=== PATIENT | male | born 1945 | race Caucasian/White ===

== ENCOUNTER → 2020-06-26 09:34 | Outpatient (REF) | payer MEDICARE, OTHER, SELFPAY ==
--- NOTE | 2020-06-26 10:00 | CA_ITS ---
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 Normal LV systolic function 2. At least moderately dilated left atrium 3. Mild mitral regurgitation 4. Normal RV systolic pressure 5. No pericardial effusion Findings Left Ventricle Normal left ventricular size, thickness, and systolic function. The visually estimated ejection fraction is between 55-60%. Diastolic function is indeterminate on the basis of available data. Right Ventricle Mildly increased right ventricular cavity size. There is low normal right ventricular systolic function. Atria The left atrium is moderately dilated. Interatrial shunt cannot be excluded. The right atrium is mildly dilated. Aortic Valve The aortic valve was not well visualized. There is no aortic valve stenosis. There is no aortic valve regurgitation. Mitral Valve There is mild anterior and posterior mitral leaflet thickening. There is mild mitral valve regurgitation. There is no mitral valve stenosis. Pulmonic Valve The pulmonic valve was not well visualized. Tricuspid Valve Likely normal tricuspid valve structure and function. There is trace tricuspid valve regurgitation. The right ventricular systolic pressure is normal. The right ventricular systolic pressure is 26 mmHg. Normal right atrial pressure. There is no evidence of pulmonary hypertension. Great Vessels All visible segments of the aorta are normal in size. The pulmonary artery was not well visualized. Venous The inferior vena cava is normal in size and collapses greater than 50% with inspiration. Pericardium/Pleural There is no evidence of pericardial effusion. Prior Study Comparison No significant change compared to prior study dated: 07/20/2019. Measurements 2D Linear Measurements IVSd: 1.12 0.6-0.9/0.6-1.0 cm LVIDd: 5.07 3.9-5.3/4.2-5.9 cm LVIDd Index: 2.57 2.4-3.2/2.2-3.1 cm/m2 LVIDs: 3.72 2.0-3.6 cm LVPWd: 1.11 0.7-1.1 cm Ao Root: 3.80 2.1-3.5 cm LA Diam: 4.30 2.7-3.8/3.0-4.0 cm LAIDs Index: 2.18 1.5-2.3 cm/m2 LV Mass: 269.04 67-162/88-224 g LV Mass Index: 136.57 43-95/49-115 g/m2 LVOT Diam: 2.00 3.0+(-)1.3 cm 2D Systolic Function EF 4C: 60.30 >55% EF 2C: 47.90 >55% EF BiP: 55.90 >55% Mitral Valve MV Pk E: 0.96 MV Decel Time: 150.00 E'Lateral: 7.67 E'Medial: 7.54 E/E' Med: 12.70 E/E' Lat: 12.50 PHT: 44.00 MVA PHT: 5.00 Decel [place]: 7.11 Aortic Valve AoV Pk Geoffrey: 0.75 AoV Pk Grad: 2.00 LVOT LVOT Pk Geoffrey: 0.63 LVOT Mn Geoffrey: 0.41 LVOT VTI: 0.13 LVOT Pk Grad: 2.00 LVOT Mn Grad: 1.00 LVOT Diam: 2.00 LVOT Area: 3.14 Diastolic Function MV Pk E: 0.96 E'Medial: 7.54 E/E' Med: 12.70 E' Laterial: 7.67 E/E' Lat: 12.50 Tricuspid Valve TR Pk Geoffrey: 2.38 TR Pk Grad: 23.00 RA Press: 3.00 RVSP: 26.00 Great Vessels Aorta Ao Root-2D: 3.80 2.0-3.7 cm Ao Asc: 3.70 2.1-3.4 cm Updated in Other Vendor System with Status of Final Koffi Alvarez MD electronically signed on 06/27/2020 10:26:40 AM with status of Final
--- NOTE | 2020-06-26 11:00 | ECG_ITS ---
Hook-up date: 2020-06-26 11:08:00 Duration: 25:29:00 Test Indications: Persistent Atrial Fibrillation Medications: [id number] QRS complexes 27 Ventricular ectopics which represent <1 % of total QRS comp. * Supraventricular ectopics which represent % of total QRS comp. * Paced QRS complexs which represent % of total QRS comp. VENTRICULAR ECTOPY 19 Isolated 0 Bigeminal Cycles 0 Couplets 0 Runs 0 Beats in Runs 0 Beats LONGEST at 0 BPM at :: -- 0 Beats FASTEST at 0 BPM at :: -- SUPRAVENTRICULAR ECTOPY * Isolated * Couplets * Runs * Beats in Runs * Beats LONGEST at * BPM at :: -- * Beats FASTEST at * BPM at :: -- HEART RATES 54 MIN at 10:27:26 2020-06-27 90 AVG 146 MAX at 22:04:59 2020-06-26 LONGEST RR 1.8800 secs at 11:21:51 2020-06-26 S-T LEVELS Channel 1 - 128 mm at 11:08:00 2020-06-26 - 128 mm at 11:08:00 2020-06-26 Channel 2 - 128 mm at 11:08:00 2020-06-26 - 128 mm at 11:08:00 2020-06-26 Channel 3 - 128 mm at 03:02:71 -- - 128 mm at 03:02:71 Basic rhythm Atrial fibrillation No long pause or profound bradycardia Adequate rate control with average HR of 90 bpm Rare Premature ventricular complexes Patient did not report any symptoms in the diary Referred By: Ti Dickerson Overread By: SONY STAFFORD MD
== END ==
LOC: HO.CARD 09:34
PROVIDERS: Visit Provider Internal Medicine
DX: I48.19 Other persistent atrial fibrillation (principal)
CPT/HCPCS: 93225; 93226; 93306

== ENCOUNTER → 2020-07-30 10:29 | Outpatient (BNVA) | payer MEDICARE, OTHER, SELFPAY | PROVIDERS: PCP Internal Medicine Geriatric Medicine; Visit Provider Internal Medicine | DX: I48.19 Other persistent atrial fibrillation (principal); I42.8 Other cardiomyopathies; I10 Essential (primary) hypertension; J44.9 Chronic obstructive pulmonary disease, unspecified | CPT/HCPCS: 93005; 99212 ==

== ENCOUNTER 2020-10-26 11:39 | Outpatient (REF) | payer MEDICARE, OTHER, SELFPAY ==
--- NOTE | ~2020-10-26 | CT_ITS ---
EXAMINATION: CT CHEST SCREENING CLINICAL INFORMATION: Nicotine dependence COMPARISON: CT chest 09/21/2019 TECHNIQUE: Multidetector volumetric CT imaging of the chest is performed without contrast using low dose technique. Additional 2D coronal and sagittal reformatted images and axial 3D maximum intensity projection (MIP) images are generated on the CT workstation. This CT examination was performed using dose optimization techniques as appropriate, variously including the following: *Automated exposure control *Adjustment of mA and/or kV according to patient size (this includes techniques or standardized protocols for targeted exams where dose is matched to indication/reason for exam; i.e. extremities or head) *Use of iterative reconstruction technique DLP: 76 mGy-cm FINDINGS: LUNGS: The lungs are hyperinflated but clear of acute pneumonic consolidation. There is a punctate 1 mm calcified nodule right upper lobe, axial image 135/6. No additional calcified or noncalcified nodules seen. Minimal atelectatic changes seen in both lung bases. MEDIASTINUM: The thyroid lobes are symmetrical and normal. The central trachea and the bronchi widely patent. The heart size and the great vessels are normal caliber. Coronary artery calcification is present. There is no pericardial effusion seen. PLEURA: There is no pleural effusion. No pleural mass or thickening. AXILLA: No lymphadenopathy. UPPER ABDOMEN: Visualized liver, spleen, gallbladder and bilateral adrenal glands are unremarkable. OSSEOUS STRUCTURES: There is moderate ventral spondylosis and calcification of anterior longitudinal ligament. No lytic process. CT/CT lung screening IMPRESSION: 1 mm calcified nodule/granuloma right upper lobe is stable. No additional nodules seen. Coronary artery calcifications. ASSESSMENT: Lung-RADS category 2: Benign RECOMMENDATION: Low dose annual CT chest.
== END 2020-10-26 11:40 | disposition home or self-care (01) ==
LOC: HO.CT 11:39
PROVIDERS: Visit Provider Physician Assistant Medical
DX: Z12.2 Encounter for screening for malignant neoplasm of respiratory organs (principal); F17.210 Nicotine dependence, cigarettes, uncomplicated
CPT/HCPCS: 71271

== ENCOUNTER 2020-12-28 17:01 | Outpatient (REF) | payer MEDICARE, OTHER, SELFPAY ==
--- NOTE | ~2020-12-28 | US_ITS ---
EXAMINATION: US VENOUS ULTRASOUND WITH DOPPLER LOWER EXTREMITY, RIGHT CLINICAL INFORMATION: Swelling COMPARISON: None TECHNIQUE: Ultrasound of the deep veins is performed from the hip to the calf with compression sonography and color and pulse Doppler assessment. Spectral analysis with color-flow imaging is performed. FINDINGS: There is normal venous compression and respiratory variation and augmented flow. The visualized common femoral vein, superficial femoral vein, profunda femoral vein, popliteal vein, and the trifurcation region shows no evidence of deep venous thrombosis. There is no significant popliteal fossa cyst. There is edema in the calf. US/US venous duplex LE RT IMPRESSION: No DVT demonstrated in the right lower extremity.
--- NOTE | ~2020-12-28 | XR_ITS ---
EXAMINATION: XR CHEST CLINICAL INFORMATION: Heart failure exacerbation COMPARISON: Previous chest x-ray August 2018 TECHNIQUE: 2 views of the chest were obtained. FINDINGS: The cardiac silhouette is slightly enlarged but stable. Hilar and mediastinal contours are unremarkable. The lungs are clear. There is no pleural effusion or pneumothorax. There are degenerative changes of the spine. XR/XR chest 2V IMPRESSION: Stable enlargement of the cardiac silhouette. No evidence of CHF.
[2020-12-28 17:45] LABS: MANUAL DIFF FLAG NO
[2020-12-28 18:01] LABS: Estimated Average Glucose 189 mg/dL; Hemoglobin A1c % 8.2 %
[2020-12-28 18:09] LABS: Basophils Percent Auto 0.3 % (0-2); Eosinophils Absolute Auto 0.1 X10*3/uL (0.0-0.4); Eosinophils Percent Auto 0.6 % (0-4); Hematocrit 47.9 % (42-52); Hemoglobin 15.5 g/dl (14.0-18.0); Imm Gran Pct Auto 0.9 % (0.0-0.4); Lymphocytes Percent Auto 27.1 % (20-40); Mean Corpuscular HGB Conc 32.4 g/dl (31.0-36.0); Mean Corpuscular Hemoglobin 29.6 pg (27.0-33.0); Mean Corpuscular Volume 91.6 fL (80-98); Mean Platelet Volume 11.4 fL (9.4-12.4); Monocytes Percent Auto 9.3 % (2-11); Neutrophils Absolute Auto 6.9 X10*3/uL (2.0-8.3); Neutrophils Percent Auto 61.8 % (45-73); Platelet Count 295 X10*3/uL (160-400); Red Blood Count 5.23 X10*6/uL (4.60-5.80); Red Cell Distribution Width 13.7 % (11.0-16.0); White Blood Count 11.2 X10*3/uL (4.8-10.8)
[2020-12-28 18:14] LABS: Alanine Aminotransferase 22 U/L (0-40); Alkaline Phosphatase 119 U/L (39-117); Anion Gap 16 (12-20); Aspartate Amino Transferase 17 U/L (5-37); Bilirubin Direct 0.4 mg/dL (0.0-0.5); Blood Urea Nitrogen 21 mg/dL (9-16); Carbon Dioxide 30 mmol/L (22-29); Chloride 101 mmol/L (96-108); Cholesterol 146 mg/dL; Estimated Glomerular Filt Rate 48; Glucose Random 113 mg/dL (60-115); HDL Cholesterol 32 mg/dL; LDL Cholesterol Calculated 66 mg/dl; Potassium 4.6 mmol/L (3.3-5.1); Sodium 142 mmol/L (135-145); Total Protein 6.9 g/dL (6.5-8.0); Triglycerides 241 mg/dL
[2020-12-28 18:18] LABS: B Type Natriuretic Peptide 115 pg/mL (<100)
[2020-12-28 18:32] LABS: Creatinine Urine 207.26 mg/dL
[2020-12-28 18:39] LABS: TSH reflex Free T4 0.63 uIU/mL (0.32-4.0); Vitamin D 25-OH Total 24.8 ng/mL (>30)
== END 2020-12-28 17:02 | disposition home or self-care (01) ==
LOC: HO.US 17:01
PROVIDERS: Absent Provider Internal Medicine Geriatric Medicine; PCP Internal Medicine Geriatric Medicine; Visit Provider Nurse Practitioner Family
DX: R60.0 Localized edema (principal); M79.89 Other specified soft tissue disorders
CPT/HCPCS: 36415; 71046; 80048; 80061; 80076; 82043; 82306; 83036; 83880; 84443; 85025; 93971

== ENCOUNTER → 2021-07-23 10:38 | Outpatient (BNVA) | payer MEDICARE, OTHER, SELFPAY | PROVIDERS: PCP Internal Medicine Geriatric Medicine; Referring Provider Internal Medicine Geriatric Medicine; Visit Provider Internal Medicine | DX: I48.19 Other persistent atrial fibrillation (principal); I42.8 Other cardiomyopathies; I10 Essential (primary) hypertension; J44.9 Chronic obstructive pulmonary disease, unspecified | CPT/HCPCS: 93005; 99212 ==

== ENCOUNTER 2022-04-07 12:31 | Outpatient (REF) | payer MEDICARE, OTHER, SELFPAY ==
--- NOTE | ~2022-04-07 | CT_ITS ---
EXAMINATION: CT CHEST SCREENING CLINICAL INFORMATION: Smoking history COMPARISON: Previous chest CT most recent October 2020 TECHNIQUE: Multidetector volumetric CT imaging of the chest is performed without contrast using low dose technique. Additional 2D coronal and sagittal reformatted images and axial 3D maximum intensity projection (MIP) images are generated on the CT workstation. This CT examination was performed using dose optimization techniques as appropriate, variously including the following: *Automated exposure control *Adjustment of mA and/or kV according to patient size (this includes techniques or standardized protocols for targeted exams where dose is matched to indication/reason for exam; i.e. extremities or head) *Use of iterative reconstruction technique DLP: 62 mGy-cm FINDINGS: LUNGS: There is evidence of mild emphysema. There is a 2 mm calcified right upper lobe nodule axial image 144 series 5. There is a 2 mm noncalcified peripheral or subpleural right upper lobe nodule axial image 266 series 5. The lungs are otherwise clear. No endobronchial or endotracheal lesion. MEDIASTINUM: Coronary artery calcification. The mediastinum is otherwise normal. PLEURA: There is no pleural effusion. No pleural mass or thickening. AXILLA: No lymphadenopathy. UPPER ABDOMEN: Unremarkable OSSEOUS STRUCTURES: There are degenerative changes of the spine. CT/CT lung screening IMPRESSION: Mild emphysema. Stable small pulmonary nodules. Coronary artery calcification. ASSESSMENT: Lung-RADS category 2: Benign RECOMMENDATION: Annual low-dose chest CT follow-up recommended.
== END 2022-04-07 12:32 | disposition home or self-care (01) ==
LOC: HO.CT 12:31
PROVIDERS: Visit Provider Physician Assistant Medical
DX: Z12.2 Encounter for screening for malignant neoplasm of respiratory organs (principal); F17.210 Nicotine dependence, cigarettes, uncomplicated
CPT/HCPCS: 71271

== ENCOUNTER 2022-06-10 10:27 | Outpatient (REF) | payer MEDICARE, OTHER, SELFPAY ==
--- NOTE | ~2022-06-10 | XR_ITS ---
EXAMINATION: XR CHEST CLINICAL INFORMATION: COPD COMPARISON: Previous chest x-ray December [address] March 2022 TECHNIQUE: 2 views of the chest were obtained. FINDINGS: The cardiac and mediastinal contours are stable. The lungs are clear. There is no pleural effusion or pneumothorax. There are degenerative changes of the spine. There is ossification of the anterior longitudinal ligament questionable for DISH versus ankylosing spondylitis. XR/XR chest 2V IMPRESSION: No evidence for acute disease in the chest.
== END 2022-06-10 10:28 | disposition home or self-care (01) ==
LOC: HO.XRAY 10:27
PROVIDERS: PCP Internal Medicine Geriatric Medicine; Visit Provider Internal Medicine Geriatric Medicine
DX: J44.1 Chronic obstructive pulmonary disease with (acute) exacerbation (principal)
CPT/HCPCS: 71046

== ENCOUNTER 2023-03-17 18:01 | Outpatient (REF) | payer MEDICARE, OTHER, SELFPAY | END 2023-03-17 18:02 | disposition home or self-care (01) | LOC: HO.HHCL 18:01 | PROVIDERS: Visit Provider Emergency Medicine | DX: L03.115 Cellulitis of right lower limb (principal); L02.415 Cutaneous abscess of right lower limb | CPT/HCPCS: 87070; 87073; 87205 ==

== ENCOUNTER 2023-03-26 13:51 | Outpatient (RCR) | payer MEDICARE, OTHER, SELFPAY | END 2023-03-26 16:00 | disposition home or self-care (01) | LOC: HO.WCC 13:51 | PROVIDERS: PCP Internal Medicine Geriatric Medicine; Visit Provider Surgery | DX: E11.622 Type 2 diabetes mellitus with other skin ulcer (principal); L97.919 Non-pressure chronic ulcer of unspecified part of right lower leg with unspecified severity; E11.22 Type 2 diabetes mellitus with diabetic chronic kidney disease; I12.9 Hypertensive chronic kidney disease with stage 1 through stage 4 chronic kidney disease, or unspecified chronic kidney disease; N18.30 Chronic kidney disease, stage 3 unspecified; F17.210 Nicotine dependence, cigarettes, uncomplicated | CPT/HCPCS: 99213 ==

== ENCOUNTER 2023-04-10 12:44 | Outpatient (REF) | payer MEDICARE, OTHER, SELFPAY ==
[2023-04-10 12:55] LABS: MANUAL DIFF FLAG NO
[2023-04-10 13:53] LABS: Basophils Percent Auto 0.3 % (0-2); Eosinophils Percent Auto 0.1 % (0-4); Hematocrit 36.5 % (42.0-52.0); Imm Gran Abs Auto 0.05 X10*3/uL (0.00-0.03); Imm Gran Pct Auto 0.4 % (0.0-0.4); Lymphocytes Absolute Auto 1.6 X10*3/uL (1.2-4.9); Lymphocytes Percent Auto 13.4 % (20-40); Mean Corpuscular HGB Conc 30.1 g/dl (31.0-36.0); Mean Corpuscular Hemoglobin 25.1 pg (27.0-33.0); Mean Corpuscular Volume 83.1 fL (80.0-98.0); Mean Platelet Volume 10.6 fL (9.4-12.4); Monocytes Absolute Auto 1.2 X10*3/uL (0.1-1.2); Neutrophils Percent Auto 75.8 % (45-73); Platelet Count 398 X10*3/uL (160-400); Red Blood Count 4.39 X10*6/uL (4.60-5.80); White Blood Count 11.9 X10*3/uL (4.8-10.8)
[2023-04-10 14:29] LABS: Anion Gap 15 (12-20); Blood Urea Nitrogen 18 mg/dL (9-16); Calcium 9.1 mg/dL (8.4-10.2); Carbon Dioxide 28 mmol/L (22-29); Chloride 106 mmol/L (96-108); Estimated Glomerular Filt Rate 54; Glucose Random 131 mg/dL (60-115); Potassium 4.9 mmol/L (3.3-5.1); Sodium 144 mmol/L (135-145)
[2023-04-10 15:28] LABS: B Type Natriuretic Peptide 228 pg/mL (<100)
== END 2023-04-10 12:45 | disposition home or self-care (01) ==
LOC: HO.LAB 12:44
PROVIDERS: PCP Internal Medicine Geriatric Medicine; Visit Provider Internal Medicine Geriatric Medicine
DX: R09.02 Hypoxemia (principal); J44.9 Chronic obstructive pulmonary disease, unspecified; I50.9 Heart failure, unspecified; R60.0 Localized edema
CPT/HCPCS: 36415; 80048; 83880; 85025

== ENCOUNTER 2023-04-15 11:54 | Outpatient (REF) | payer MEDICARE, OTHER, SELFPAY ==
--- NOTE | ~2023-04-15 | XR_ITS ---
EXAMINATION: XR CHEST CLINICAL INFORMATION: Shortness of breath. COMPARISON: Chest radiographs dated 06/10/2022. TECHNIQUE: 2 views of the chest were obtained. FINDINGS: Very small bilateral pleural effusions are seen. The upper lung hermosillo are clear. The heart and mediastinal structures are unremarkable. XR/XR chest 2V IMPRESSION: Very small bilateral pleural effusions.
== END 2023-04-15 11:55 | disposition home or self-care (01) ==
LOC: HO.HHCX 11:54
PROVIDERS: Visit Provider Internal Medicine Geriatric Medicine
DX: J44.9 Chronic obstructive pulmonary disease, unspecified (principal); J11.1 Influenza due to unidentified influenza virus with other respiratory manifestations; R09.02 Hypoxemia
CPT/HCPCS: 71046

== ENCOUNTER → 2023-05-07 12:30 | Outpatient (REF) | payer MEDICARE, OTHER, SELFPAY ==
--- NOTE | 2023-05-07 12:43 | CA_ITS ---
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 There is mildly increased left ventricular wall thickness. The visually estimated ejection fraction is between 55-60%. - Normal right ventricular cavity size. There is mildly decreased right ventricular systolic function. - The left atrium is moderately dilated. The right atrium is moderately dilated. - There is mild to moderate mitral valve regurgitation. - Significantly elevated right atrial pressure. Mild pulmonary hypertension is present. - There is mild dilatation of the sinuses of Valsalva measuring 4.10 cm and mild dilatation of the ascending aorta measuring 3.80 cm. Findings Procedure Information The study quality is limited by the patients inability to tolerate the test. Left Ventricle Normal left ventricular size and systolic function. There is mildly increased left ventricular wall thickness. The visually estimated ejection fraction is between 55-60%. There is no evidence of regional wall motion abnormalities. Diastolic function is indeterminate on the basis of available data. Right Ventricle Normal right ventricular cavity size. There is mildly decreased right ventricular systolic function. Atria The left atrium is moderately dilated. The right atrium is moderately dilated. Aortic Valve There is a normal trileaflet aortic valve. There is no aortic valve stenosis. There is no aortic valve regurgitation. Mitral Valve The mitral valve appears normal. There is mild to moderate mitral valve regurgitation. There is no mitral valve stenosis. Pulmonic Valve The pulmonic valve is normal. There is trace pulmonic valve regurgitation. Tricuspid Valve Normal tricuspid valve structure. There is mild tricuspid valve regurgitation. The right ventricular systolic pressure is 41 mmHg. Significantly elevated right atrial pressure. Mild pulmonary hypertension is present. Great Vessels There is mild dilatation of the sinuses of Valsalva measuring 4.10 cm and mild dilatation of the ascending aorta measuring 3.80 cm. The visualized portions of the pulmonary artery and branches are normal. Venous The inferior vena cava is dilated and does not collapse with inspiration. Pericardium/Pleural There is no evidence of pericardial effusion. Prior Study Comparison Changes noted compared to prior study dated: 06/26/2020. RV function mildly decreased, Mild pulm hypertension, elevated RA pressure. Measurements 2D Linear Measurements IVSd: 1.20 0.6-0.9/0.6-1.0 cm LVIDd: 5.00 3.9-5.3/4.2-5.9 cm LVIDd Index: 2.45 2.4-3.2/2.2-3.1 cm/m2 LVIDs: 3.60 2.0-3.6 cm LVPWd: 1.00 0.7-1.1 cm LA Diam: 4.90 2.7-3.8/3.0-4.0 cm LAIDs Index: 2.40 1.5-2.3 cm/m2 LV Mass: 258.18 67-162/88-224 g LV Mass Index: 126.56 43-95/49-115 g/m2 LVOT Diam: 2.20 3.0+(-)1.3 cm 2D Systolic Function EF 4C: 55.40 >55% Mitral Valve MV VTI: 0.28 MV Pk Geoffrey: 1.49 MV Mn Geoffrey: 0.84 MV Pk Grad: 9.00 MV Mn Grad: 3.00 MV Pk E: 1.42 MV Decel Time: 136.00 E'Lateral: 7.33 E'Medial: 6.02 E/E' Med: 23.60 E/E' Lat: 19.40 PHT: 40.00 MVA PHT: 5.50 MVA Continuity: 1.74 Decel [place]: 10.44 MR Vol - PW Dopp: 16.08 MR VTI: 1.34 MR ERO: 12.00 MR Alias Geoffrey: 0.35 MR RAD: 0.50 Aortic Valve AoV Pk Geoffrey: 0.84 AoV Pk Grad: 3.00 LVOT LVOT Pk Geoffrey: 0.68 LVOT Mn Geoffrey: 0.48 LVOT VTI: 0.13 LVOT Pk Grad: 2.00 LVOT Mn Grad: 1.00 LVOT Diam: 2.20 LVOT Area: 3.80 Diastolic Function MV Pk E: 1.42 E'Medial: 6.02 E/E' Med: 23.60 E' Laterial: 7.33 E/E' Lat: 19.40 Right Ventricle TAPSE (mm): 11.10 TVS' Geoffrey: 6.82 Tricuspid Valve TR Pk Geoffrey: 2.57 TR Pk Grad: 26.00 RA Press: 15.00 RVSP: 41.00 Great Vessels Aorta Sinus of Valsalva: 4.10 2.0-3.[address] [place]: 3.30 1.7-3.4 cm Ao Asc: 3.80 2.1-3.4 cm Updated in Other Vendor System with Status of Final Earl Espinal MD electronically signed on 05/09/2023 6:36:45 PM with status of Final
== END ==
LOC: HO.CARD 12:30
PROVIDERS: Visit Provider Internal Medicine Geriatric Medicine
DX: R09.02 Hypoxemia (principal); R60.0 Localized edema
CPT/HCPCS: 93306

== ENCOUNTER → 2023-05-07 12:43 | Outpatient (BNV) | payer MEDICARE, SELFPAY | PROVIDERS: Visit Provider Internal Medicine Cardiovascular Disease | DX: I34.0 Nonrheumatic mitral (valve) insufficiency (principal); I36.1 Nonrheumatic tricuspid (valve) insufficiency | CPT/HCPCS: 93306 ==

== ENCOUNTER 2023-05-14 10:32 | Outpatient (AMB) | payer MEDICARE, SELFPAY ==
[2023-05-14 10:35] VITALS: BP 110/52; PULSE 91; O2SAT 90; BMI 37.8
--- NOTE | 2023-05-14 10:35 | A.OFFVIS_ITS ---
Intake Vital Signs 05/14/23 10:35 Height 5 ft 4 in Weight 220 lb BMI 37.8 BP 110/52 L Blood Pressure Location Lt brachial Position Sitting Pulse 91 Pulse Source Pulse Oximeter Pulse Oximetry (%) 90 L Oxygen Delivery Method Room Air Intake Visit Reasons: Hypoxia Intake Note: pt is here as a new patient, he states that he has oxygen at home that he has had about 1 month, he only has stationary consult at home, but states walking a short distance he has to stop and catch his breath, he has been having leg swelling. Allergies No Known Allergies [No Known Allergies*] Allergy (Unknown, Verified 05/14/23 10:51) Medication List - Last Reconciled 05/14/23 by Jomar Barillas MD albuterol sulfate 90 mcg/actuation (ProAir HFA) 2 puffs inhalation Q6H PRN amlodipine 5 mg PO DAILY 30 days apixaban (Eliquis) 5 mg PO BID atorvastatin 40 mg PO DAILY digoxin 125 mcg PO DAILY fluticasone propionate 110 mcg/actuation 1 puff inhalation BID folic acid 1 mg PO DAILY furosemide 20 mg PO DAILY glipizide 5 mg PO BID lisinopril 20 mg PO DAILY metformin 1,000 mg PO BID metoprolol succinate ER 200 mg PO DAILY multivitamin 1 tab PO DAILY thiamine HCl (vitamin B1) 100 mg PO DAILY Do you need a note to return to daycare/school/sports/work: No HPI Hypoxia HPI Details THIS GENTLEMAN IS 77 YEARS OLD MALE BEING SEEN FOR THE 1ST TIME FOR PULMONARY EVALUATION AND MANAGEMENT. HE IS SOMEWHAT SLOW IN RESPONDING TO THE QUESTIONS AND SLOW IN TALKING, I HAVE OBTAINED INFORMATION MOSTLY FROM THE REPORT SENT BY HIS PRIMARY CARE PHYSICIAN AND ALSO FROM THE NOTES IN OUR [employer] SYSTEM. HE IS BEING TREATED FOR ATRIAL FIBRILLATION, NONISCHEMIC CARDIOMYOPATHY, HYPERTENSION AND DIABETES MELLITUS. HISTORY OF SMOKING THROUGHOUT HIS ADULT LIFE, HE CLAIMS THAT HE HAS CUT DOWN, BUT ADMITTED THAT HE STILL SMOKES ABOUT HALF PACK OF CIGARETTES A DAY. 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 HE HAS LONGSTANDING HISTORY OF SHORTNESS OF BREATH ON WALKING, HE GETS SHORT OF BREATH BY WALKING 1 BLOCK. HE HAD PULMONARY FUNCTION TEST HERE AT [facility] FOR THE FEEBLE-MINDED BACK IN 2009 WHICH HAD SHOWN SEVERE OBSTRUCTIVE AIRWAY DISORDER. PATIENT DENIES BEING HOSPITALIZED DUE TO ANY ACUTE EXACERBATION SINCE THEN. CURRENTLY HE HAS ALBUTEROL HFA ON HAND, WHICH HE USES ONLY OFF AND ON. HE HAS 1 MORE INHALER, FLUTICASONE , AND FROM THE CHART OF INHALERS HE POINTS OUT TO ANNUITY ELLIPTA. WHICH HE USES TWICE A DAY.( NOT SURE) HE STATES THAT HE WAS RECENTLY STARTED ON OXYGEN. HAS O2 CONCENTRATOR AT HOME , WHICH HE USES THE DURING THE DAYTIME FOR THE INITIAL FEW HOURS AFTER WAKING UP. HE DOES NOT HAVE A PORTABLE UNIT. HE HAS CHRONIC EDEMA OF THE LEGS WITH THE, CHRONIC SKIN CHANGES OF DERMATITIS. [facility] Medical History (Updated 05/14/23 @ 12:16 by Jomar Barillas MD) Respiratory failure with hypoxia Chronic obstructive pulmonary disease, unspecified Essential hypertension Nonischemic cardiomyopathy Persistent atrial fibrillation Surgical History History of inguinal hernia repair, bilateral Family History Father No problems noted. Mother No problems noted. Social History Patient Tobacco Use Status: Current everyday Tobacco user Cigarettes Per Day: 10 Years Smoked: since a teenager Review of Systems Const All systems reviewed & are unremarkable except as noted in HPI and below Eyes Reports no additional complaints ENT Reports no additional complaints Card Reports irregular heart rhythm (ATRIAL FIB), Reports leg edema and Reports dyspnea on exertion Resp Reports as per HPI and Reports dyspnea on exertion GI Reports no additional complaints Reports no additional complaints Musc Reports no additional complaints Skin/Breast Reports other (Stasis dermatitis on both legs) Neuro Reports no additional complaints and Reports Abnormal speech present (Slow) Psych Reports no additional complaints Endo Reports no additional complaints Leonardo/Lymph Reports no additional complaints Aller/Immun Reports no additional complaints Physical Exam Vital Signs: Last Vital Signs Pulse 91 05/14/23 10:35 BP 110/52 L 05/14/23 10:35 Pulse Ox 90 L 05/14/23 10:35 Oxygen Delivery Method Room Air 05/14/23 10:35 BMI result Body Mass Index 37.8 Const General: comfortable, no acute distress, alert and awake Orientation/consciousness: patient oriented x3 HEENT Head: Yes normal to inspection General nose exam: No nasal polyps present and No nasal discharge present Face and sinus: Yes sinuses nontender Mouth: oropharynx normal Throat: Yes posterior oropharynx normal Eyes General: appearance normal, both eyes and all related structures Neck Neck: Yes normal visual inspection, Yes no lymphadenopathy, Yes trachea midline and Yes no JVD Thyroid: Thyroid normal Chest Chest palpation & inspection: normal inspection of the chest, normal palpation of entire chest wall and no tenderness Resp Other: PERCUSSION NOTE RESONANT, BREATH SOUNDS ARE DISTANT, . WITH PROLONGED EXPIRATORY PHASE BREATH SOUNDS ARE ESPECIALLY DIMINISHED OVER. THE BASILAR AREAS NO WHEEZES OR RHONCHI OR CREPITATIONS ARE HEARD. Cardio Palpation: PMI not normal (NOT PALPABLE) Rate: regular rate Rhythm: abnormal rhythm (ATRIAL FIB) Heart sounds: no gallops and no murmurs GI Palpation (GI): Soft to palpation, nontender, No hepatosplenomegaly present and no masses Auscultation: normal bowel sounds Back/Spine/Pelvis Thoracic/Lumbar Spine: thoracic and lumbar spine normal to inspection and thoraco-lumbar ROM limited Skin General skin exam: no rashes or lesions noted (EXCEPT CHRONIC DERMATITIS OF THE LEGS) Neuro General: patient oriented x3 and no focal motor deficits Cranial nerves: Yes CN's II-XII intact bilaterally Speech: Abnormal speech present (Slow) Extrem General: Yes normal to inspection, Yes no clubbing, cyanosis or edema, Yes no calf tenderness and Yes venous stasis dermatitis (VENOUS STASIS WITH DERMATITIS, ON THE ANTERIOR PART OF BOTH LEGS.) Psych Speech and movement: Normal speech and movement present Results Reviewed Results Reviewed: 6 MINUTES WALK TEST. PATIENT DESATURATED QUICKLY, ON WALKING. AND HYPOXEMIA WAS TREATED WITH O2 2 L/MINUTE. CHEST X-RAY ON 04/15/23 INCREASED BRONCHOVASCULAR MARKINGS AND MINIMAL EFFUSIONS OVER THE BASILAR AREAS Assessment & Plan Assessment & Plan (1) Chronic obstructive pulmonary disease, unspecified: Comment: THIS GENTLEMAN HAS RATHER SEVERE DEGREE OF CHRONIC OBSTRUCTIVE PULMONARY DISEASE, WHICH WAS NOTED BACK IN 2009, ON PULMONARY FUNCTION TEST. BECAUSE HE IS A CONTINUED SMOKER, HIS SEVERITY. OF COPD HAS PROBABLY WORSENED LUCKILY HE HAS HAD NO ACUTE EXACERBATION . TX : AT THIS POINT I TALKED TO HIM IN DETAIL AND URGED HIM TO QUIT SMOKING. THIS MAY BE A DIFFICULT GOAL . TO ACHIEVE TX: CONTINUE FLUTICASONE PROPIONATE 1102 PUFFS B.I.D.. CONTINUE PROAIR 2 PUFFS Q FOUR TO SIX HOURS P.R.N.. PATIENT BEING SCHEDULED FOR REPEAT PULMONARY FUNCTION TEST. WILL ADJUST HIS MEDICAL REGIMEN AFTER THIS TEST. CHEST X-RAY AND VENOUS BLOOD GAS STUDY WAS ORDERED FOR TODAY. Code(s): J44.9 - Chronic obstructive pulmonary disease, unspecified Qualifiers: COPD type: unspecified COPD Qualified Code(s): J44.9 - Chronic obstructive pulmonary disease, unspecified (2) Respiratory failure with hypoxia: Comment: THIS PATIENT IS KNOWN TO HAVE HYPOXEMIA. HE DOES HAVE STATIONARY O2 CONCENTRATOR AT HOME, BUT HAS NOT BEEN USING OXYGEN REGULARLY. HE HAS SIGNIFICANT EXERCISE INDUCED HYPOXEMIA AND NEEDS O2 SAYS MENTATION WITH THE PORTABLE CYLINDER. WE WILL BE SENDING ORDERS FOR THAT. PATIENT IS ADVISED TO USE O2 2 L/MINUTE WHOLE NIGHT, AND ALSO P.R.N. DURING THE DAYTIME IF HE GETS SHORT OF BREATH. HE SHOULD ALSO USE THE PORTABLE CYLINDER ANY TIME HE IS DOING ANY PHYSICAL WORK OR GOES OUTDOORS. Code(s): J96.91 - Respiratory failure, unspecified with hypoxia Orders: Orders Venous Blood Gas Today J44.9 - Chronic obstructive pulmonary disease, unspecified, J96.91 - Respiratory failure, unspecified with hypoxia XR chest 2V Today J44.9 - Chronic obstructive pulmonary disease, unspecified, J96.91 - Respiratory failure, unspecified with hypoxia Coding Level of Care Code New Pt Level 4 (02241) Diagnoses Chronic obstructive pulmonary disease, unspecified COPD type J44.9 COPD type: unspecified COPD Respiratory failure with hypoxia J96.91
[2023-05-14 13:41] VITALS: PULSE 105; O2SAT 89
== END 2023-05-14 11:13 | disposition home or self-care (01) ==
PROVIDERS: PCP Internal Medicine Geriatric Medicine; Visit Provider Internal Medicine
DX: J44.9 Chronic obstructive pulmonary disease, unspecified (principal); J96.91 Respiratory failure, unspecified with hypoxia
CPT/HCPCS: 94618; 99204

== ENCOUNTER → 2023-05-14 10:32 | Outpatient (BNVA) | payer MEDICARE, OTHER, SELFPAY | PROVIDERS: PCP Internal Medicine Geriatric Medicine; Visit Provider Internal Medicine | DX: J44.9 Chronic obstructive pulmonary disease, unspecified (principal); J96.91 Respiratory failure, unspecified with hypoxia | CPT/HCPCS: 94618; 99202 ==

== ENCOUNTER 2023-07-06 10:27 | Outpatient (AMB) | payer MEDICARE, SELFPAY ==
--- NOTE | 2023-07-06 11:12 | A.OFFVIS_ITS ---
Intake Vital Signs 07/06/23 11:13 Height 5 ft 4 in Weight 220 lb BMI 37.8 BP 110/68 Blood Pressure Location Lt brachial Position Sitting Pulse 84 Pulse Source Pulse Oximeter Pulse Oximetry (%) 94 Oxygen Delivery Method Room Air Intake Visit Reasons: Hypoxia Intake Note: pt is here for follow up and oxygen is at the home for portability and also for night time use. He is feeling okay, had pft prior and just little change. 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 Required: No Allergies No Known Allergies [No Known Allergies*] Allergy (Unknown, Verified 07/06/23 11:27) Medication List - Last Reconciled 07/06/23 by Jomar Barillas MD albuterol sulfate 90 mcg/actuation (ProAir HFA) 2 puffs inhalation Q6H PRN amlodipine 5 mg PO DAILY 30 days apixaban (Eliquis) 5 mg PO BID atorvastatin 40 mg PO DAILY digoxin 125 mcg PO DAILY fluticasone propionate 110 mcg/actuation 1 puff inhalation BID folic acid 1 mg PO DAILY furosemide 20 mg PO DAILY glipizide 5 mg PO BID lisinopril 20 mg PO DAILY metformin 1,000 mg PO BID metoprolol succinate ER 200 mg PO DAILY multivitamin 1 tab PO DAILY thiamine HCl (vitamin B1) 100 mg PO DAILY Do you need a note to return to daycare/school/sports/work: No HPI Hypoxia HPI Details THIS 77 YEARS OLD GENTLEMAN IS HERE FOR HIS FOLLOW-UP AFTER PULMONARY FUNCTION TEST. HE CLAIMS THAT HIS BREATHING IS FAIRLY STABLE. HE DOES NOT HAVE TO USE RESCUE INHALER MUCH. HE STILL USES FLOVENT-1102 PUFFS B.I.D.. HE IS RELATIVELY SEDENTARY, STAYING AT HOME AND DOES NOT WALK AROUND MUCH. HIS MAIN ISSUE IS CHRONIC STASIS EDEMA OF THE LEGS, FOR WHICH HE IS ON DIURETIC THERAPY. PATIENT DOES HAVE STATIONARY OXYGEN CONCENTRATOR WELL A PORTABLE UNIT AT HOME. HE IS SUPPOSED TO USE O2 2 L/MINUTE AT NIGHT BUT HE IS USING ONLY OFF AND ON FOR A FEW HOURS AT A TIME. HE IS NOT USING THE PORTABLE UNIT ALL THE TIMES. HE DENIES ANY EXCESSIVE COUGH OR WHEEZING. [facility] Medical History (Updated 07/06/23 @ 11:41 by Jomar Barillas MD) Obesity (BMI 35.0-39.9 without comorbidity) Respiratory failure with hypoxia Chronic obstructive pulmonary disease, unspecified Essential hypertension Nonischemic cardiomyopathy Persistent atrial fibrillation Surgical History History of inguinal hernia repair, bilateral Family History Father No problems noted. Mother No problems noted. Social History Patient Tobacco Use Status: Current everyday Tobacco user Cigarettes Per Day: 10 Years Smoked: since a teenager Review of Systems Const All systems reviewed & are unremarkable except as noted in HPI and below Eyes Reports no additional complaints ENT Reports no additional complaints Card Reports irregular heart rhythm (ATRIAL FIB), Reports leg edema and Reports dyspnea on exertion Resp Reports as per HPI and Reports dyspnea on exertion GI Reports no additional complaints Reports no additional complaints Musc Reports no additional complaints Skin/Breast Reports other (Stasis dermatitis on both legs) Neuro Reports no additional complaints and Reports Abnormal speech present (Slow) Psych Reports no additional complaints Endo Reports no additional complaints Leonardo/Lymph Reports no additional complaints Aller/Immun Reports no additional complaints Physical Exam Vital Signs: Last Vital Signs Pulse 84 07/06/23 11:13 BP 110/68 07/06/23 11:13 Pulse Ox 94 07/06/23 11:13 Oxygen Delivery Method Room Air 07/06/23 11:13 BMI result Body Mass Index 37.8 Const General: comfortable, no acute distress, alert and awake Orientation/consciousness: patient oriented x3 HEENT Head: Yes normal to inspection General nose exam: No nasal polyps present and No nasal discharge present Face and sinus: Yes sinuses nontender Mouth: oropharynx normal Throat: Yes posterior oropharynx normal Eyes General: appearance normal, both eyes and all related structures Neck Neck: Yes normal visual inspection, Yes no lymphadenopathy, Yes trachea midline and Yes no JVD Thyroid: Thyroid normal Chest Chest palpation & inspection: normal inspection of the chest, normal palpation of entire chest wall and no tenderness Resp Other: PERCUSSION NOTE RESONANT, BREATH SOUNDS ARE DISTANT, . WITH PROLONGED EXPIRATORY PHASE BREATH SOUNDS ARE ESPECIALLY DIMINISHED OVER. THE BASILAR AREAS NO WHEEZES OR RHONCHI OR CREPITATIONS ARE HEARD. Cardio Palpation: PMI not normal (NOT PALPABLE) Rate: regular rate Rhythm: abnormal rhythm (ATRIAL FIB) Heart sounds: no gallops and no murmurs GI Palpation (GI): Soft to palpation, nontender, No hepatosplenomegaly present and no masses Auscultation: normal bowel sounds Back/Spine/Pelvis Thoracic/Lumbar Spine: thoracic and lumbar spine normal to inspection and thoraco-lumbar ROM limited Skin General skin exam: no rashes or lesions noted (EXCEPT CHRONIC DERMATITIS OF THE LEGS) Neuro General: patient oriented x3 and no focal motor deficits Cranial nerves: Yes CN's II-XII intact bilaterally Speech: Abnormal speech present (Slow) Extrem General: Yes normal to inspection, Yes no clubbing, cyanosis or edema, Yes no calf tenderness and Yes venous stasis dermatitis (VENOUS STASIS WITH DERMATITIS, ON THE ANTERIOR PART OF BOTH LEGS.) Psych Speech and movement: Normal speech and movement present Office Procedures Flu Questionnaire Does the patient have a severe egg allergy?: No Does the patient have severe life threatening allergies?: No Does the patient have a fever or illness today?: No Has the patient ever had Guillain-[place] Syndrome?: No Has the patient ever had any past reaction to a flu shot?: No Immunizations flu vacc [id number] 6mos up(PF) 60 mcg(15 mcgx4)/0.5 mL IM syringe Performing Provider: Jomar Barillas MD Performing Location: [facility] Administered by: Sigrid Serrano LPN on 07/06/23 11:38 Dose Route Admin Location Dispensed Lot Number Expiration Date NDC Estimator Paperboard Boxes 0.5 mL IM Left Deltoid 0.5 mL [id number] 02/14/24 63750-880-55 OneTouch VIS Given Date VIS Provided VIS Publication Date 07/06/23 Single Vaccine 21 Eligibility Eligibility Date Funding Source Not [facility] Eligible 07/06/23 Private Results Reviewed Results Reviewed: PULMONARY FUNCTION TEST. THE RESULTS ARE CONSISTENT WITH MILD RESTRICTIVE PULMONARY DISORDER, AND MODERATELY SEVERE OBSTRUCTIVE AIRWAY DISORDER. NO SIGNIFICANT RESPONSE TO BRONCHODILATORS NOTED Assessment & Plan Assessment & Plan (1) Chronic obstructive pulmonary disease, unspecified: Comment: THIS GENTLEMAN HAS RATHER SEVERE DEGREE OF CHRONIC OBSTRUCTIVE PULMONARY DISEASE, WHICH WAS NOTED BACK IN 2009, ON PULMONARY FUNCTION TEST. BECAUSE HE IS A CONTINUED SMOKER, HIS SEVERITY. OF COPD HAS PROBABLY WORSENED PULMONARY FUNCTION TEST TODAY DOES SHOW SEVERE OBSTRUCTIVE AIRWAY DISORDER AND MILD RESTRICTIVE LUNG DISORDER. LUCKILY HE HAS HAD NO ACUTE EXACERBATION . TX : AT THIS POINT I TALKED TO HIM IN DETAIL AND URGED HIM TO QUIT SMOKING. THIS MAY BE A DIFFICULT GOAL . TO ACHIEVE TX: CONTINUE FLUTICASONE PROPIONATE 1102 PUFFS B.I.D.. CONTINUE PROAIR 2 PUFFS Q FOUR TO SIX HOURS P.R.N.. Code(s): J44.9 - Chronic obstructive pulmonary disease, unspecified Qualifiers: COPD type: unspecified COPD Qualified Code(s): J44.9 - Chronic obstructive pulmonary disease, unspecified Plan: ABOVE (2) Respiratory failure with hypoxia: Comment: THIS PATIENT IS KNOWN TO HAVE HYPOXEMIA. HE DOES HAVE STATIONARY O2 CONCENTRATOR AT HOME, BUT HAS NOT BEEN USING OXYGEN REGULARLY. HE HAS SIGNIFICANT EXERCISE INDUCED HYPOXEMIA AND NEEDS O2 SUPPLEMENTATION WITH THE PORTABLE CYLINDER. HE DOES HAVE THE PORTABLE UNIT HOWEVER HE IS NOT USING IT MUCH. PATIENT IS ADVISED TO USE O2 2 L/MINUTE WHOLE NIGHT, AND ALSO P.R.N. DURING THE DAYTIME IF HE GETS SHORT OF BREATH. HE SHOULD ALSO USE THE PORTABLE CYLINDER ANY TIME HE IS DOING ANY PHYSICAL WORK OR GOES OUTDOORS. Code(s): J96.91 - Respiratory failure, unspecified with hypoxia Plan: ABOVE (3) Obesity (BMI 35.0-39.9 without comorbidity): Comment: PATIENT IS GROSSLY OBESE, PART OF THAT IS DUE TO CHRONIC STASIS EDEMA OF THE LOWER EXTREMITIES. HE IS NOT IN ANY SHAPE TO LOSE WEIGHT. Code(s): E66.9 - Obesity, unspecified Plan: DISCUSSED WITH HIM ABOUT THE WEIGHT AND TO CUT DOWN THE CALORIES INTAKE. ALSO ADVISED. TO CONTINUE DIURETIC THERAPY ON A REGULAR BASIS Orders: Orders Influenza [id number] Immunization Today J44.9 - Chronic obstructive pulmonary disease, unspecified Medications: New flu vacc [id number] 6mos up(PF) 0.5 mL IM ONCE 0.5 mL 0RF J44.9 - Chronic obstructive pulmonary disease, unspecified Coding Level of Care Code Est Pt Level 3 (58699) Diagnoses Chronic obstructive pulmonary disease, unspecified COPD type J44.9 COPD type: unspecified COPD Respiratory failure with hypoxia J96.91 Obesity (BMI 35.0-39.9 without comorbidity) E66.9
[2023-07-06 11:13] VITALS: BP 110/68; PULSE 84; O2SAT 94; BMI 37.8
== END 2023-07-06 11:49 | disposition home or self-care (01) ==
PROVIDERS: PCP Internal Medicine Geriatric Medicine; Visit Provider Internal Medicine
DX: J96.91 Respiratory failure, unspecified with hypoxia (principal); J44.9 Chronic obstructive pulmonary disease, unspecified
CPT/HCPCS: 94060; 94727; 94729; 99213

== ENCOUNTER 2023-07-06 10:33 | Outpatient (REF) | payer MEDICARE, OTHER, SELFPAY ==
--- NOTE | 2023-07-06 11:47 | PFT_ITS ---
FLOWS: 1. FEV1 45% of predicted at 1.09 L. 2. FVC 56% of predicted at 1.81 L. 3. FEV1 to FVC ratio of 0.30. 4. No bronchodilator response. LUNG VOLUMES: 1. Total lung capacity is 78% of predicted at 4.47 L. 2. Residual volume 120% of predicted at 2.66 L. 3. Expiratory reserve volume 30% of predicted at 0.27 L. 4. Slow vital capacity 53% of predicted at 1.81 L. 5. Diffusion capacity is severely decreased, diffusion capacity corrects normal after adjustment for alveolar ventilation. IMPRESSION: Combined severe obstructive and restrictive ventilatory defect with no bronchodilator response. Increased residual volume suggests air trapping. Decreased expiratory residual volume suggests extrathoracic restriction likely secondary to abdominal obesity. Decreased diffusion capacity suggests emphysema. MD JUAN C Pride/MODL / [phone]
== END 2023-07-06 10:34 | disposition home or self-care (01) ==
LOC: HO.RESP 10:33
PROVIDERS: PCP Internal Medicine Geriatric Medicine; Visit Provider Internal Medicine
DX: J44.9 Chronic obstructive pulmonary disease, unspecified (principal); Z23 Encounter for immunization
CPT/HCPCS: 90471; 90686; 94010; 94727; 94729; 99212

== ENCOUNTER 2023-07-21 10:27 | Outpatient (REF) | payer MEDICARE, SELFPAY ==
--- NOTE | ~2023-07-21 | CT_ITS ---
EXAMINATION: CT CHEST LOW-DOSE SCREENING WITHOUT CONTRAST ACCESSION: Nicotine dependence HISTORY: Asymptomatic patient meeting criteria for lung screening. Smoking PATIENT PACK-YEAR HISTORY: 7 Current Smoker: Yes If former smoker, years since quitting: NA COMPARISON: 04/07/2022 TECHNIQUE: Multidetector volumetric non-contrast CT imaging of the chest was obtained on a [id number] 128 slice scanner using low dose screening CT technique. Axial thin section 0.625 mm reformations in soft tissue and lung windows were obtained. Sagittal and coronal reformations were obtained. Axial MIP images were also created and reviewed. RECONSTRUCTED WIDTH: 1.25 mm x 1.25 mm TOTAL EXAM DLP: 107 mGy-cm CTDIvol: 2.16 mGy FINDINGS: The equipment sales specialist view is unremarkable LUNGS: Lungs are well expanded with features of centrilobular emphysema, no consolidation or mass is, cystic bulla in the right lower lobe There is punctate calcified subpleural nodules seen again in the right upper lobe seen on image 101 series 6. There are no new lung nodules. MEDIASTINUM/LYMPHATIC STRUCTURES: There is no mediastinal lymphadenopathy. THYROID GLAND: Unremarkable to the extent seen. CARDIOVASCULAR STRUCTURES: Aortic is ectatic measured 4.0 cm approximately and heart size normal. Coronary artery calcifications are moderate to severe. There is mild cardiomegaly. No pericardial effusion. PLEURA: VISUALIZED ABDOMEN: There is cholelithiasis. 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 CT/CT lung screening IMPRESSION: 1. No findings suspicious for malignancy/pulmonary nodule(s)/other. 2. History of lung cancer: None 3. Lung-Rads 2 4. DESCRIPTOR: Benign. Incidental findings (s category): Finding: Cholelithiasis. PHYSICAL FINDINGS (S CATEGORY): Significance category: Potentially clinically significant. RECOMMENDATION: Low dose lung CT. overall in 1 year. Visual estimate of coronary calcified plaque burden: None. However, this exam cannot replace a dedicated cardiac CT calcium score for accurate assessment.
== END 2023-07-21 10:28 | disposition home or self-care (01) ==
LOC: HO.CT 10:27
PROVIDERS: PCP Internal Medicine Geriatric Medicine; Visit Provider Physician Assistant Medical
DX: Z12.2 Encounter for screening for malignant neoplasm of respiratory organs (principal); F17.210 Nicotine dependence, cigarettes, uncomplicated
CPT/HCPCS: 71271

== ENCOUNTER 2023-11-02 11:31 | Outpatient (AMB) | payer MEDICARE, SELFPAY ==
[2023-11-02 11:37] VITALS: BP 110/70; PULSE 93; O2SAT 94; BMI 37.5
--- NOTE | 2023-11-02 11:37 | A.OFFVIS_ITS ---
Intake Vital Signs 11/02/23 11:37 Height 5 ft 4 in Weight 218 lb 4.122 oz BMI 37.5 BP 110/70 Blood Pressure Location Lt brachial Position Sitting Pulse 93 Pulse Source Pulse Oximeter Pulse Oximetry (%) 94 Oxygen Delivery Method Room Air Intake Visit Reasons: Hypoxia Intake Note: pt is here for follow up and states the oxygen bothers his nose, but he tries to use it when needed. Cutter Banana Room Required: No Allergies No Known Allergies [No Known Allergies*] Allergy (Unknown, Verified 11/02/23 11:42) Medication List - Last Reconciled 11/02/23 by Jomar Barillas MD albuterol sulfate 90 mcg/actuation (ProAir HFA) 2 puffs inhalation Q6H PRN amlodipine 5 mg PO DAILY 30 days apixaban (Eliquis) 5 mg PO BID atorvastatin 40 mg PO DAILY digoxin 125 mcg PO DAILY fluticasone propionate 110 mcg/actuation 1 puff inhalation BID folic acid 1 mg PO DAILY furosemide 20 mg PO DAILY glipizide 5 mg PO BID lisinopril 20 mg PO DAILY metformin 1,000 mg PO BID metoprolol succinate ER 200 mg PO DAILY multivitamin 1 tab PO DAILY thiamine HCl (vitamin B1) 100 mg PO DAILY Do you need a note to return to daycare/school/sports/work: No HPI Hypoxia HPI Details This 78 years old gentleman is of a relatively simple mind. He is grossly obese. He has moderately severe obstructive/restrictive lung disease. He also has nocturnal hypoxemia as well as exercise induced hypoxemia, mainly due to chronic hypoventilation. He does have O2 concentrator as well as a portable cylinder at home but, he hates to use the O2 when he goes outdoors. He tells me that he does not go outdoor too much , only for appointments , and takes bus. He claims that the O2 cannula bothers the nostril so he hates to use when he goes outdoors. These days he is sleeping mostly in the recliner with his feet up. He denies much cough or wheezing. He does not complain of any shortness of breath on walking because he does not walk long distance anyway. He has had no acute episodes of wheezing or cough [facility] Medical History Obesity (BMI 35.0-39.9 without comorbidity) Respiratory failure with hypoxia Chronic obstructive pulmonary disease, unspecified Essential hypertension Nonischemic cardiomyopathy Persistent atrial fibrillation Surgical History History of inguinal hernia repair, bilateral Family History Father No problems noted. Mother No problems noted. Social History Patient Tobacco Use Status: Current everyday Tobacco user Cigarettes Per Day: 10 Years Smoked: since a teenager Review of Systems Const All systems reviewed & are unremarkable except as noted in HPI and below Eyes Reports no additional complaints ENT Reports no additional complaints Card Reports irregular heart rhythm (ATRIAL FIB), Reports leg edema and Reports dyspnea on exertion Resp Reports as per HPI and Reports dyspnea on exertion GI Reports no additional complaints Reports no additional complaints Musc Reports no additional complaints Skin/Breast Reports other (Stasis dermatitis on both legs) Neuro Reports no additional complaints and Reports Abnormal speech present (Slow) Psych Reports no additional complaints Endo Reports no additional complaints Leonardo/Lymph Reports no additional complaints Aller/Immun Reports no additional complaints Physical Exam Vital Signs: Last Vital Signs Pulse 93 11/02/23 11:37 BP 110/70 11/02/23 11:37 Pulse Ox 94 11/02/23 11:37 Oxygen Delivery Method Room Air 11/02/23 11:37 BMI result Body Mass Index 37.5 Const General: comfortable, no acute distress, alert and awake Orientation/consciousness: patient oriented x3 HEENT Head: Yes normal to inspection General nose exam: No nasal polyps present and No nasal discharge present Face and sinus: Yes sinuses nontender Mouth: oropharynx normal Throat: Yes posterior oropharynx normal Eyes General: appearance normal, both eyes and all related structures Neck Neck: Yes normal visual inspection, Yes no lymphadenopathy, Yes trachea midline and Yes no JVD Thyroid: Thyroid normal Chest Chest palpation & inspection: normal inspection of the chest, normal palpation of entire chest wall and no tenderness Resp Other: PERCUSSION NOTE RESONANT, BREATH SOUNDS ARE DISTANT, . WITH PROLONGED EXPIRATORY PHASE BREATH SOUNDS ARE ESPECIALLY DIMINISHED OVER. THE BASILAR AREAS NO WHEEZES OR RHONCHI OR CREPITATIONS ARE HEARD. Cardio Palpation: PMI not normal (NOT PALPABLE) Rate: regular rate Rhythm: abnormal rhythm (ATRIAL FIB) Heart sounds: no gallops and no murmurs GI Palpation (GI): Soft to palpation, nontender, No hepatosplenomegaly present and no masses Auscultation: normal bowel sounds Back/Spine/Pelvis Thoracic/Lumbar Spine: thoracic and lumbar spine normal to inspection and thoraco-lumbar ROM limited Skin General skin exam: no rashes or lesions noted (EXCEPT CHRONIC DERMATITIS OF THE LEGS) Neuro General: patient oriented x3 and no focal motor deficits Cranial nerves: Yes CN's II-XII intact bilaterally Speech: Abnormal speech present (Slow) Extrem General: Yes normal to inspection, Yes no clubbing, cyanosis or edema, Yes no calf tenderness and Yes venous stasis dermatitis (VENOUS STASIS WITH DERMATITIS, ON THE ANTERIOR PART OF BOTH LEGS.) Psych Speech and movement: Normal speech and movement present Results Reviewed Results Reviewed: I made him walk with me in the hallway, for 5 minutes. O2 sat at rest 93%, after walking for 5 minutes 86%. Thus confirming that he still has exercise induced hypoxemia. Assessment & Plan Assessment & Plan (1) Obesity (BMI 35.0-39.9 without comorbidity): Comment: PATIENT IS GROSSLY OBESE, PART OF THAT IS DUE TO CHRONIC STASIS EDEMA OF THE LOWER EXTREMITIES. HE IS NOT IN ANY SHAPE TO LOSE WEIGHT. Code(s): E66.9 - Obesity, unspecified Plan: Talked about the weight, and he is not able to do much exercise. Continue on diuretic therapy. (2) Chronic obstructive pulmonary disease, unspecified: Comment: THIS GENTLEMAN HAS RATHER SEVERE DEGREE OF CHRONIC OBSTRUCTIVE PULMONARY DISEASE, HISTORY GOES BACK TO 2010., WHO WHEN HE HAD HIS 1ST PULMONARY FUNCTION TEST. PULMONARY FUNCTION TEST ON LAST VISIT SHOWED SEVERE OBSTRUCTIVE AIRWAY DISORDER AND MILD RESTRICTIVE LUNG DISORDER. LUCKILY HE HAS HAD NO ACUTE EXACERBATION . TX : AT THIS POINT I TALKED TO HIM IN DETAIL AND URGED HIM TO QUIT SMOKING. THIS MAY BE A DIFFICULT GOAL TO ACHIEVE Code(s): J44.9 - Chronic obstructive pulmonary disease, unspecified Qualifiers: COPD type: unspecified COPD Qualified Code(s): J44.9 - Chronic obstructive pulmonary disease, unspecified Plan: TX: CONTINUE FLUTICASONE PROPIONATE 110 2 PUFFS B.I.D.. CONTINUE VENTOLIN 2 PUFFS Q FOUR TO SIX HOURS P.R.N.. (3) Respiratory failure with hypoxia: Comment: THIS PATIENT IS KNOWN TO HAVE HYPOXEMIA. HE DOES HAVE STATIONARY O2 CONCENTRATOR AT HOME, BUT HAS NOT BEEN USING OXYGEN REGULARLY. HE HAS SIGNIFICANT EXERCISE INDUCED HYPOXEMIA AND NEEDS O2 SUPPLEMENTATION WHEN WALKING . HE DOES HAVE THE PORTABLE UNIT HOWEVER HE IS NOT USING IT MUCH SAYING THAT HE DOES NOT GO OUTDOORS MUCH. Code(s): J96.91 - Respiratory failure, unspecified with hypoxia Plan: PATIENT IS ADVISED TO USE O2 2 L/MINUTE WHOLE NIGHT, AND ALSO P.R.N. DURING THE DAYTIME IF HE GETS SHORT OF BREATH. HE SHOULD ALSO USE THE PORTABLE CYLINDER ANY TIME HE IS DOING ANY PHYSICAL WORK OR GOES OUTDOORS FOR MORE THAN 15 - 30 MINUTES Coding Level of Care Code Est Pt Level 3 (04297) Diagnoses Obesity (BMI 35.0-39.9 without comorbidity) E66.9 Chronic obstructive pulmonary disease, unspecified COPD type J44.9 COPD type: unspecified COPD Respiratory failure with hypoxia J96.91
== END 2023-11-02 11:53 | disposition home or self-care (01) ==
LOC: HO.HPS 11:35
PROVIDERS: PCP Internal Medicine Geriatric Medicine; Visit Provider Internal Medicine
DX: E66.9 Obesity, unspecified (principal); J44.9 Chronic obstructive pulmonary disease, unspecified; J96.91 Respiratory failure, unspecified with hypoxia
CPT/HCPCS: 99213

== ENCOUNTER → 2023-11-02 11:35 | Outpatient (BNVA) | payer MEDICARE, SELFPAY | PROVIDERS: PCP Internal Medicine Geriatric Medicine; Visit Provider Internal Medicine | DX: J96.91 Respiratory failure, unspecified with hypoxia (principal); J44.9 Chronic obstructive pulmonary disease, unspecified; E66.9 Obesity, unspecified | CPT/HCPCS: 99212 ==

== ENCOUNTER 2024-03-03 10:39 | Outpatient (AMB) | payer MEDICARE, SELFPAY ==
--- NOTE | 2024-03-03 10:48 | A.OFFVIS_ITS ---
Vital Signs 03/03/24 10:49 Height 5 ft 4 in Weight 213 lb BMI 36.6 BP 122/62 Blood Pressure Location Lt brachial Position Sitting Pulse 104 H Pulse Source Pulse Oximeter Pulse Oximetry (%) 95 Oxygen Delivery Method Room Air Intake Visit Reasons: Hypoxia Intake Note: pt is here for follow up and states he feels pretty good. 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: No Allergies No Known Allergies [No Known Allergies*] Allergy (Unknown, Verified 03/03/24 11:03) Medication List - Last Reconciled 03/03/24 by Jomar Barillas MD albuterol sulfate 90 mcg/actuation (ProAir HFA) 2 puffs inhalation Q6H PRN amlodipine 5 mg PO DAILY 30 days apixaban (Eliquis) 5 mg PO BID atorvastatin 40 mg PO DAILY digoxin 125 mcg PO DAILY folic acid 1 mg PO DAILY furosemide 20 mg PO DAILY glipizide 5 mg PO BID lisinopril 20 mg PO DAILY metformin 1,000 mg PO BID metoprolol succinate ER 200 mg PO DAILY multivitamin 1 tab PO DAILY thiamine HCl (vitamin B1) 100 mg PO DAILY umeclidinium 62.5 mcg/actuation (Incruse Ellipta) 1 inh inhalation BEDTIME Do you need a note to return to daycare/school/sports/work: No HPI HPI Hypoxia: Details: This 78 years old gentleman is of a relatively simple mind. He is grossly obese. He has moderately severe obstructive/restrictive lung disease. He also has nocturnal hypoxemia as well as exercise induced hypoxemia, mainly due to chronic hypoventilation. He does have O2 concentrator as well as a portable cylinder at home but, he hates to use the O2 when he goes outdoors. He tells me that he does not go outdoor too much , only for appointments , and takes bus. He claims that the O2 cannula bothers the nostril so he hates to use when he goes outdoors. These days he is sleeping mostly in the recliner with his feet up. He denies much cough or wheezing. He does not complain of any shortness of breath on walking because he does not walk long distance anyway. He has had no acute episodes of wheezing or cough. Since his last visit he has actually returned her oxygen, as he does not want to use it. He claims that he is doing okay. Breathing is better since he is using Incruse Ellipta. And he uses albuterol HFA only once in a while. [facility] Medical History Obesity (BMI 35.0-39.9 without comorbidity) Respiratory failure with hypoxia Chronic obstructive pulmonary disease, unspecified Essential hypertension Nonischemic cardiomyopathy Persistent atrial fibrillation Surgical History History of inguinal hernia repair, bilateral Family History Father No problems noted. Mother No problems noted. Social History Patient Tobacco Use Status: Current everyday Tobacco user Cigarettes Per Day: 10 Years Smoked: since a teenager Review of Systems Const All systems reviewed & are unremarkable except as noted in HPI and below Eyes Reports no additional complaints ENT Reports no additional complaints Card Reports irregular heart rhythm (ATRIAL FIB), Reports leg edema and Reports dys pnea on exertion Resp Reports as per HPI and Reports dyspnea on exertion GI Reports no additional complaints Reports no additional complaints Musc Reports no additional complaints Skin/Breast Reports other (Stasis dermatitis on both legs) Neuro Reports no additional complaints and Reports Abnormal speech present (Slow) Psych Reports no additional complaints Endo Reports no additional complaints Leonardo/Lymph Reports no additional complaints Aller/Immun Reports no additional complaints Physical Exam Vital Signs: Last Vital Signs Pulse 104 H 03/03/24 10:49 BP 122/62 03/03/24 10:49 Pulse Ox 95 03/03/24 10:49 Oxygen Delivery Method Room Air 03/03/24 10:49 BMI result Body Mass Index 36.6 Const General: comfortable, no acute distress, alert and awake Orientation/consciousness: patient oriented x3 HEENT Head: Yes normal to inspection General nose exam: No nasal polyps present and No nasal discharge present Face and sinus: Yes sinuses nontender Mouth: oropharynx normal Throat: Yes posterior oropharynx normal Eyes General: appearance normal, both eyes and all related structures Neck Neck: Yes normal visual inspection, Yes no lymphadenopathy, Yes trachea midline and Yes no JVD Thyroid: Thyroid normal Chest Chest palpation & inspection: normal inspection of the chest, normal palpation of entire chest wall and no tenderness Resp Other: PERCUSSION NOTE RESONANT, BREATH SOUNDS ARE DISTANT, . WITH PROLONGED EXPIRATORY PHASE BREATH SOUNDS ARE ESPECIALLY DIMINISHED OVER. THE BASILAR AREAS NO WHEEZES OR RHONCHI OR CREPITATIONS ARE HEARD. Cardio Palpation: PMI not normal (NOT PALPABLE) Rate: regular rate Rhythm: abnormal rhythm (ATRIAL FIB) Heart sounds: no gallops and no murmurs GI Palpation (GI): Soft to palpation, nontender, No hepatosplenomegaly present and no masses Auscultation: normal bowel sounds Back/Spine/Pelvis Thoracic/Lumbar Spine: thoracic and lumbar spine normal to inspection and thoraco-lumbar ROM limited Skin General skin exam: no rashes or lesions noted (EXCEPT CHRONIC DERMATITIS OF THE LEGS) Neuro General: patient oriented x3 and no focal motor deficits Cranial nerves: Yes CN's II-XII intact bilaterally Speech: Abnormal speech present (Slow) Extrem General: Yes normal to inspection, Yes no clubbing, cyanosis or edema, Yes no calf tenderness and Yes venous stasis dermatitis (VENOUS STASIS WITH DERMATITIS, ON THE ANTERIOR PART OF BOTH LEGS.) Psych Speech and movement: Normal speech and movement present Assessment & Plan Assessment & Plan (1) Obesity (BMI 35.0-39.9 without comorbidity): Comment: PATIENT IS GROSSLY OBESE, PART OF THAT IS DUE TO CHRONIC STASIS EDEMA OF THE LOWER EXTREMITIES. HE IS NOT IN ANY SHAPE TO LOSE WEIGHT. Code(s): E66.9 - Obesity, unspecified Category: Medical Plan: IT IS DIFFICULT FOR THIS GENTLEMAN TO LOSE WEIGHT. HE IS ALSO NOT ABLE TO DO ANY STRENUOUS EXERCISE. SO FOR PRACTICAL PURPOSES I THINK HE IS GOING TO STAY GROSSLY OBESE. (2) Chronic obstructive pulmonary disease, unspecified: Comment: THIS GENTLEMAN HAS RATHER SEVERE DEGREE OF CHRONIC OBSTRUCTIVE PULMONARY DISEASE, HISTORY GOES BACK TO 2009., WHO WHEN HE HAD HIS 1ST PULMONARY FUNCTION TEST. HIS RECENT PULMONARY FUNCTION TEST HAS CONFIRMED DIAGNOSIS OF SEVERE OBSTRUCTIVE DISORDER AND MILD TO MODERATE RESTRICTIVE DISORDER. LUCKILY HE HAS HAD NO ACUTE EXACERBATION . Code(s): J44.9 - Chronic obstructive pulmonary disease, unspecified Category: Medical Qualifiers: COPD type: unspecified COPD Qualified Code(s): J44.9 - Chronic obstructive pulmonary disease, unspecified Plan: TX : CONTINUE USING INCRUSE ELLIPTA 1 INHALATION DAILY. AND USE ALBUTEROL HFA 2 PUFFS Q 6 HOURS ONLY P.R.N. (3) Respiratory failure with hypoxia: Comment: THIS PATIENT IS KNOWN TO HAVE NOCTURNAL HYPOXEMIA. AND ALSO EXERCISE INDUCED HYPOXEMIA. HOWEVER HE IS NOT ABLE TO USE THE O2 , AND HAS RETURNED HIS OXYGEN CONCENTRATOR WELL PORTABLE CYLINDER. HE SAY IS THAT HE DOES NOT DO MUCH WORK. AND HE IS NOT GETTING VERY SHORT OF BREATH. ON MOVING AROUND IN THE HOUSE Code(s): J96.91 - Respiratory failure, unspecified with hypoxia Category: Medical Plan: HE JUST NOT GOING TO COMPLY WITH OXYGEN USE. I TOLD HIM TO AT LEAST KEEP ON DOING DEEP BREATHING EXERCISES. Coding Level of Care Code Est Pt Level 3 (73200) Diagnoses Obesity (BMI 35.0-39.9 without comorbidity) E66.9 Chronic obstructive pulmonary disease, unspecified COPD type J44.9 COPD type: unspecified COPD Respiratory failure with hypoxia J96.91
[2024-03-03 10:49] VITALS: BP 122/62; PULSE 104; O2SAT 95; BMI 36.6
== END 2024-03-03 11:14 | disposition home or self-care (01) ==
PROVIDERS: PCP Internal Medicine Geriatric Medicine; Visit Provider Internal Medicine
DX: E66.9 Obesity, unspecified (principal); J44.9 Chronic obstructive pulmonary disease, unspecified; J96.91 Respiratory failure, unspecified with hypoxia
CPT/HCPCS: 99213

== ENCOUNTER → 2024-03-03 10:39 | Outpatient (BNVA) | payer MEDICARE, SELFPAY | PROVIDERS: PCP Internal Medicine Geriatric Medicine; Visit Provider Internal Medicine | DX: J44.9 Chronic obstructive pulmonary disease, unspecified (principal); J96.91 Respiratory failure, unspecified with hypoxia; E66.9 Obesity, unspecified; F17.210 Nicotine dependence, cigarettes, uncomplicated; Z99.81 Dependence on supplemental oxygen | CPT/HCPCS: 99212 ==

== ENCOUNTER 2024-05-09 09:19 | Outpatient (REF) | payer MEDICARE, SELFPAY ==
[2024-05-09 11:26] LABS: MANUAL DIFF FLAG NO
[2024-05-09 11:31] LABS: Basophils Percent Auto 0.4 % (0-2); Eosinophils Absolute Auto 0.2 X10*3/uL (0.0-0.4); Eosinophils Percent Auto 1.8 % (0-4); Hematocrit 40.9 % (42.0-52.0); Hemoglobin 12.8 g/dl (14.0-18.0); Imm Gran Abs Auto 0.07 X10*3/uL (0.00-0.03); Imm Gran Pct Auto 0.8 % (0.0-0.4); Lymphocytes Absolute Auto 1.7 X10*3/uL (1.2-4.9); Mean Corpuscular HGB Conc 31.3 g/dl (31.0-36.0); Mean Corpuscular Volume 89.5 fL (80.0-98.0); Monocytes Absolute Auto 0.8 X10*3/uL (0.1-1.2); Monocytes Percent Auto 9.1 % (2-11); Neutrophils Absolute Auto 5.8 x10*3/uL (2.0-8.3); Neutrophils Percent Auto 67.9 % (45-73); Platelet Count 307 X10*3/uL (160-400); Red Blood Count 4.57 X10*6/uL (4.60-5.80); White Blood Count 8.6 X10*3/uL (4.8-10.8)
[2024-05-09 11:58] LABS: Alanine Aminotransferase 9 U/L (0-40); Albumin Level 3.7 g/dL (3.5-5.0); Alkaline Phosphatase 119 U/L (39-117); Anion Gap 15 (12-20); Aspartate Amino Transferase 14 U/L (5-37); Bilirubin Total 0.6 mg/dL (0.0-1.0); Blood Urea Nitrogen 13 mg/dL (9-16); Calcium 9.1 mg/dL (8.4-10.2); Carbon Dioxide 25 mmol/L (22-29); Chloride 106 mmol/L (96-108); Cholesterol 117 mg/dL (<200); Estimated Glomerular Filt Rate 58; Glucose Random 140 mg/dL (60-115); HDL Cholesterol 32 mg/dL (>40); LDL Cholesterol Calculated 54 mg/dL (<100); Magnesium 1.5 mg/dL (1.6-2.6); Potassium 4.8 mmol/L (3.3-5.1); Sodium 141 mmol/L (135-145); Total Protein 6.9 g/dL (6.5-8.0); Triglycerides 158 mg/dL (<150)
[2024-05-09 12:00] LABS: Digoxin 0.7 ng/mL (0.8-2.0); ~HepC Num1 0.22 S/CO (0.00-0.79); ~Hepatitis C Antibody Nonreactive (Nonreactive)
[2024-05-09 12:17] LABS: Creatinine Urine 265.72 mg/dL; Microalbum/Creatinine Ratio Ur 92.2 ug/mg cr (<30)
== END 2024-05-09 09:20 | disposition home or self-care (01) ==
LOC: HO.HHCL 09:19
PROVIDERS: Visit Provider Internal Medicine Geriatric Medicine
DX: E11.69 Type 2 diabetes mellitus with other specified complication (principal); I87.2 Venous insufficiency (chronic) (peripheral); I48.20 Chronic atrial fibrillation, unspecified; I10 Essential (primary) hypertension; Z11.59 Encounter for screening for other viral diseases
CPT/HCPCS: 36415; 80053; 80061; 80162; 82043; 82570; 83735; 85025; 86803

== ENCOUNTER 2024-09-07 10:20 | Outpatient (AMB) | payer MEDICARE, SELFPAY ==
[2024-09-07 10:24] VITALS: BP 110/64; PULSE 99; O2SAT 95; BMI 42.6
--- NOTE | 2024-09-07 10:24 | MHC.OFFVIS ---
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 Required: No Allergies No Known Allergies [No Known Allergies*] Allergy (Unknown, Verified 09/07/24 10:42) Medication List - Last Reconciled 09/07/24 by Jomar Barillas MD albuterol sulfate 90 mcg/actuation (ProAir HFA) 2 puffs inhalation Q6H PRN amlodipine 5 mg PO DAILY 30 days apixaban (Eliquis) 5 mg PO BID atorvastatin 40 mg PO DAILY digoxin 125 mcg PO DAILY folic acid 1 mg PO DAILY furosemide 20 mg PO DAILY glipizide 5 mg PO BID lisinopril 20 mg PO DAILY metformin 1,000 mg PO BID metoprolol succinate ER 200 mg PO DAILY multivitamin 1 tab PO DAILY thiamine HCl (vitamin B1) 100 mg PO DAILY umeclidinium 62.5 mcg/actuation (Incruse Ellipta) 1 inh inhalation BEDTIME Do you need a note to return to daycare/school/sports/work: No HPI HPI Hypoxia: Details: MR. BRUSH IS 78 YEARS OLD GENTLEMAN WITH MORBID OBESITY, AND CHRONIC OBSTRUCTIVE PULMONARY DISEASE, HE IS HERE FOR FOLLOW-UP AFTER 6 MONTHS. HE HAS RETURNED HIS O2 CONCENTRATOR AND DOES NOT USE ANY OXYGEN. HE CLAIMS THAT HE SLEEPS GOOD AT NIGHT. HE IS A SIMPLE MINDED GENTLEMAN , DENIES ANY RESPIRATORY COMPLAINTS, EXCEPT FOR OCCASIONAL COUGH AND WHEEZE. HE USES HIS INCRUSE ELLIPTA 1 INHALATION DAILY REGULARLY, CURRENTLY HE IS OUT OF RESCUE INHALER AND HAS NOT USED IT FOR A FEW MONTHS. HE HAS HAD NO RECENT RESPIRATORY INFECTION OR ANY ACUTE EXACERBATION. [facility] Medical History Obesity (BMI 35.0-39.9 without comorbidity) Respiratory failure with hypoxia Chronic obstructive pulmonary disease, unspecified Essential hypertension Nonischemic cardiomyopathy Persistent atrial fibrillation Surgical History History of inguinal hernia repair, bilateral Family History Father No problems noted. Mother No problems noted. Social History Patient Tobacco Use Status: Current everyday Tobacco user Cigarettes Per Day: 3 Years Smoked: since a teenager Review of Systems Const All systems reviewed & are unremarkable except as noted in HPI and below Eyes Reports no additional complaints ENT Reports no additional complaints Card Reports irregular heart rhythm (ATRIAL FIB), Reports leg edema and Reports dyspnea on exertion Resp Reports as per HPI and Reports dyspnea on exertion GI Reports no additional complaints Reports no additional complaints Musc Reports no additional complaints Skin/Breast Reports other (Stasis dermatitis on both legs) Neuro Reports no additional complaints and Reports Abnormal speech present (Slow) Psych Reports no additional complaints Endo Reports no additional complaints Leonardo/Lymph Reports no additional complaints Aller/Immun Reports no additional complaints Physical Exam Vital Signs: Last Vital Signs Pulse 99 09/07/24 10:24 BP 110/64 09/07/24 10:24 Pulse Ox 95 09/07/24 10:24 Oxygen Delivery Method Room Air 09/07/24 10:24 BMI result Body Mass Index 42.6 Const General: comfortable, no acute distress, alert and awake Orientation/consciousness: patient oriented x3 HEENT Head: Yes normal to inspection General nose exam: No nasal polyps present and No nasal discharge present Face and sinus: Yes sinuses nontender Mouth: oropharynx normal Throat: Yes posterior oropharynx normal Eyes General: appearance normal, both eyes and all related structures Neck Neck: Yes normal visual inspection, Yes no lymphadenopathy, Yes trachea midline and Yes no JVD Thyroid: Thyroid normal Chest Chest palpation & inspection: normal inspection of the chest, normal palpation of entire chest wall and no tenderness Resp Other: PERCUSSION NOTE RESONANT, BREATH SOUNDS ARE DISTANT, . WITH PROLONGED EXPIRATORY PHASE BREATH SOUNDS ARE ESPECIALLY DIMINISHED OVER. THE BASILAR AREAS NO WHEEZES OR RHONCHI OR CREPITATIONS ARE HEARD. Cardio Palpation: PMI not normal (NOT PALPABLE) Rate: regular rate Rhythm: abnormal rhythm (ATRIAL FIB) Heart sounds: no gallops and no murmurs GI Palpation (GI): Soft to palpation, nontender, No hepatosplenomegaly present and no masses Auscultation: normal bowel sounds Back/Spine/Pelvis Thoracic/Lumbar Spine: thoracic and lumbar spine normal to inspection and thoraco-lumbar ROM limited Skin General skin exam: no rashes or lesions noted (EXCEPT CHRONIC DERMATITIS OF THE LEGS) Neuro General: patient oriented x3 and no focal motor deficits Cranial nerves: Yes CN's II-XII intact bilaterally Speech: Abnormal speech present (Slow) Extrem General: Yes normal to inspection, Yes no clubbing, cyanosis or edema, Yes no calf tenderness and Yes venous stasis dermatitis (VENOUS STASIS WITH DERMATITIS, ON THE ANTERIOR PART OF BOTH LEGS.) Psych Speech and movement: Normal speech and movement present Assessment & Plan Assessment & Plan (1) Obesity (BMI 35.0-39.9 without comorbidity): Comment: PATIENT IS GROSSLY OBESE, PART OF THAT IS DUE TO CHRONIC STASIS EDEMA OF THE LOWER EXTREMITIES. HE IS NOT IN ANY SHAPE TO LOSE WEIGHT. Code(s): E66.9 - Obesity, unspecified Category: Medical Plan: DISCUSSED ABOUT NEED TO LOSE WEIGHT BUT HE TELLS ME THAT HE HAS NO CONTROL ON THIS. THE WEIGHT GAIN IS MOSTLY DUE TO STASIS EDEMA. HE CONTINUES TO USE LASIX 20 MG DAILY AND IS BEING FOLLOWED BY CARDIOLOGY. (2) Chronic obstructive pulmonary disease, unspecified: Comment: THIS GENTLEMAN HAS RATHER SEVERE DEGREE OF CHRONIC OBSTRUCTIVE PULMONARY DISEASE, HISTORY GOES BACK TO 2009., WHEN HE HAD HIS 1ST PULMONARY FUNCTION TEST. HIS MOST RECENT PULMONARY FUNCTION TEST HAS CONFIRMED DIAGNOSIS OF SEVERE OBSTRUCTIVE DISORDER AND MILD TO MODERATE RESTRICTIVE DISORDER. LUCKILY HE HAS HAD NO ACUTE EXACERBATION . Code(s): J44.9 - Chronic obstructive pulmonary disease, unspecified Category: Medical Qualifiers: COPD type: unspecified COPD Qualified Code(s): J44.9 - Chronic obstructive pulmonary disease, unspecified Plan: CONTINUE TO USE INCRUSE ELLIPTA 1 INHALATION DAILY. USE ALBUTEROL HFA 2 PUFFS Q 4-6 HOURS ONLY P.R.N. FOR SHORTNESS OF BREATH AND WHEEZING. (3) Respiratory failure with hypoxia: Comment: THIS PATIENT IS KNOWN TO HAVE NOCTURNAL HYPOXEMIA. AND ALSO EXERCISE INDUCED HYPOXEMIA. HOWEVER HE IS NOT ABLE TO USE THE O2 , AND HAS RETURNED HIS OXYGEN CONCENTRATOR WELL PORTABLE CYLINDER. HE SAYS THAT HE DOES NOT DO MUCH WORK. AND HE IS NOT GETTING VERY SHORT OF BREATH ON MOVING AROUND IN THE HOUSE Code(s): J96.91 - Respiratory failure, unspecified with hypoxia Category: Medical Plan: HIS RESTING O2 SAT IS OKAY, ADVISED TO KEEP ON DOING DEEP BREATHING EXERCISES MUCH POSSIBLE Coding Level of Care Code Est Pt Level 3 (25676) Diagnoses Obesity (BMI 35.0-39.9 without comorbidity) E66.9 Chronic obstructive pulmonary disease, unspecified COPD type J44.9 COPD type: unspecified COPD Respiratory failure with hypoxia J96.91
--- OUTSIDE RECORDS SUMMARY | 2024-09-07 11:23 | XMS_ITS | Encounter Summary ---
Author Organization [employer] Address [address] [place] [address] Care Team Providers Care Warehouse Delivery Driver Name Role Phone Name, Kyle GUNDERSON Primary Care Provider [phone] Reason for Visit * Reason Comments Med Refill Encounter Details Date Type Department Care Team (Late st Contact Info) Description 08/19/2024 Refill [facility] [address], [place] [phone] Dhara Laughlin NP [address], [place] [phone] Type 2 diabetes mellitus with other specified complication, unspecified whether long term care phlebotomist insulin use ([facility]) Social History Tobacco Use Types Packs/Day Years Used Date Smoking Tobacco: Every Day Cigarettes Smokeless Tobacco: Never Alcohol Use Standard Drinks/Week Comments Yes 0 (1 standard drink = 0.6 oz pur e alcohol) socially Depression Answer Date Recorded Patient Health Questionnaire-9 Score 0 04/10/2023 Housing Stability Answer Date Recorded What is your housing situation today? I have darling campos 06/15/[address] you li ve. Do you have problems with any of the following? None of the above 06/15/2023 Food Insecurity Answer Date Recorded Within the past 12 months, y ou worried that your food would run out before you got money to buy more: Never True 06/15/2023 Within the past 12 months,th e food you bought just didn't last and you didn't have enough money to get more: Never True Transportation Answer Date Recorded In the past 12 months, has l ack of transportation kept you from medical appts, meetings, work or from getting things needed for daily living? No 06/15/2023 Utilities Answer Date Recorded In the past 12 months, has t he electric, gas, oil or water company threatened to shut off services in your home? No 06/15/2023 Depression Answer Date Recorded Patient Health Questionnaire-2 Score 0 04/10/2023 Sex and Gender Information Value Date Recorded Sex Assigned at Male 06/16/2022 10:17 AM EDT Legal Sex Male 10:17 AM EDT Gender Identity Male 06/16/2022 10:17 AM EDT Sexual Orientation Straight 06/16/2022 10 :17 AM EDT documented as of this encounter Plan of Treatment Not on file documented as of this encounter Visit Diagnoses Diagnosis Type 2 diabetes mellitus with other specified complication, unspecified whether residential insulin use ([facility]) documented in this encounter Additional Health Concerns Assessment Noted Time PHQ-9 Depression Total Score: 0 04/10/20 23 10:19 AM EDT documented as of this encounter Care Teams Warehouse Delivery Driver Relationship Specialty Start Date End Date Name, MD Kyle [address] [place] [id number] PCP - General Family Medicine 03/14/19 documented as of this encounter
--- OUTSIDE RECORDS SUMMARY | 2024-09-07 11:23 | XMS_ITS | Clinical Summary ---
Author Organization [employer] Address [address] [place] [address] 7[address] [place] [address] Care Team Providers Care Jaw Skinner Name Role Phone Name, Kyle GUNDERSON Primary Care Provider [phone] Allergies No known active allergies Medications Flovent HFA 110 MCG/ACT inhaler INHALE 1 PUFF BY MOUTH TWICE DAILY WITH SPACER RINSE MOUTH AFTER USING. 12 g 5 01/16/20 23 Active Spacer/Aero-Hol ding Chambers (OptiChamber [employer]) misc 1 each every 4 (four) hours if needed (asthma). 1 each 03/17/20 23 Active hydrocortisone 1 % cream APPLY TOPICALLY TO AFFECTED AREA(S) TWICE DAILY 28 g 04/01/20 23 Active albuterol 108 (90 Base) MCG/ACT inhaler Inhale 2 puffs every 4 (four) hours. 07/24/20 20 Active furosemide (Lasix) 20 MG tablet To take once a day in addition to 20mg of prednisone he has on the medbox for 10 days 10 tablet 04/15/20 23 Active Easy Touch Lancets 33G/Twist miscIndications :Diabetes mellitus type 2 in obese TEST BLOOD SUGAR FOUR TIMES DAILY 100 each 11 10/12/19 24 Active amLODIPine (Norvasc) 5 MG tablet TAKE 1 TABLET BY MOUTH EVERY MORNING 90 tablet 1 03/08/20 24 Active Magnesium 400 MG capsule Take 400 mg by mouth Once per day. 30 capsule 11 05/09/20 24 025 Active Umeclidinium Stuart (Incruse Ellipta) 62.5 MCG/ACT aerosol powder INHALE 1 PUFF BY MOUTH EVERY DAY AT THE SAME TIME 30 each 2 05/12/20 24 Active glipiZIDE (Glucotrol) 5 MG tablet TAKE 1 TABLET BY MOUTH TWICE DAILY IN THE MORNING AND IN THE EVENING WITH FOOD 180 tablet 1 05/16/20 24 Active thiamine (Vitamin B-1) 100 MG tablet TAKE 1 TABLET BY MOUTH EVERY MORNING 90 tablet 1 05/16/20 24 Active digoxin (Lanoxin) 125 MCG tablet TAKE 1 TABLET BY MOUTH EVERY MORNING 90 tablet 1 05/16/20 24 Active folic acid (Folvite) 1 MG tablet TAKE 1 TABLET BY MOUTH EVERY MORNING 90 tablet 1 05/16/20 24 Active metoprolol succinate XL (Toprol-XL) 100 MG 24 hr tablet TAKE 1 TABLET BY MOUTH EVERY MORNING 90 tablet 1 05/16/20 24 Active atorvastatin (Lipitor) 40 MG tablet TAKE 1 TABLET BY MOUTH AT BEDTIME 90 tablet 1 05/16/20 24 Active Multiple Vitamin (Multivitamin) tablet TAKE 1 TABLET BY MOUTH EVERY MORNING WITH FOOD 90 tablet 05/16/20 24 Active melatonin 5 MG tabletIndicatio ns:Insomnia, unspecified type TAKE 1 TABLET BY MOUTH AT BEDTIME FOR SLEEP 90 tablet 1 05/16/20 24 Active lisinopril 20 MG tablet TAKE 1 TABLET BY MOUTH EVERY MORNING 90 tablet 1 05/16/20 24 Active metFORMIN (Glucophage) 1000 MG tablet TAKE 1 TABLET BY MOUTH TWICE DAILY IN THE MORNING AND IN THE EVENING WITH FOOD 180 tablet 1 05/16/20 24 Active furosemide (Lasix) 20 MG tablet TAKE 1 TABLET BY MOUTH EVERY MORNING 90 tablet 1 06/08/20 24 Active glucose blood (FREESTYLE LITE) test stripIndication s:Type 2 diabetes mellitus with other specified complication, unspecified whether fpc insulin use (CMS/HCC) TEST BLOOD SUGAR FOUR TIMES DAILY 100 strip 11 08/19/19 25 Active Eliquis 5 MG tabletIndicatio ns:Atrial fibrillation, unspecified type (CMS/HCC) TAKE 1 TABLET BY MOUTH TWICE DAILY IN THE MORNING AND IN THE EVENING 60 tablet 08/26/19 25 Active glucose blood (FREESTYLE LITE) test stripIndication s:Type 2 diabetes mellitus with other specified complication, unspecified whether fpc insulin use (CMS/HCC) USE DIRECTED TO TEST BLOOD SUGAR FOUR TIMES DAILY 100 strip 1 06/29/20 24 025 Discontinued Eliquis 5 MG tabletIndicatio ns:Atrial fibrillation, unspecified type (CMS/HCC) TAKE 1 TABLET BY MOUTH TWICE DAILY IN THE MORNING AND IN THE EVENING 60 tablet 1 07/06/20 24 025 Discontinued Active Problems Problem Noted Date Diagnosed Date Hypoxia 04/10/2023 COPD, severe 04/10/2023 Occult blood in stools 08/24/2018 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 In a prior study from 2016, LVEF 45-50%. Possibly related to atrial fibrillation. Myocardial perfusion imaging in the past had not shown any significant abnormalities. 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 In a prior study from 2016, LVEF 45-50%. Possibly related to atrial fibrillation. Myocardial perfusion imaging in the past had not shown any significant abnormalities. Chronic systolic heart failure 08/24/2017 04/10/2023 Encounters Date Type Department Care Team Description 09/06/2024 Telephone [facility] MEDIC[facility] [address] [place] [address] Name, MD Kyle No Show 08/29/2024 Telephone [facility] [address] [facility] [place] [address] Claudy Robbins MA chart prep 08/24/2024 Refill [facility] [address] [facility] [place] [address] Name, MD Kyle Atrial fibrillation, unspecified type (CMS/HCC) 08/22/2024 9:45 AM EST Office Visit [facility] OPTOMETRY [address] [place] [address] Mauri, Iwona, OD Type 2 diabetes mellitus without ophthalmic manifestations ([facility]/HCC) (Primary Dx); Combined forms of age-related cataract of both eyes; Hypermetropia, bilateral 08/22/2024 Travel 08/19/2024 Refill [facility]BILE VACCINE CLINIC [address] [place] [address] Dhara Laughlin NP Type 2 diabetes mellitus with other specified complication, unspecified whether fpc insulin use ([facility]) 07/05/2024 Refill [facility] MED[facility]INE [address] [place] [address] Kyle Ibrahim MD Atrial fibrillation, unspecified type ([facility]) 06/27/2024 Refill [facility]INE CL[facility] [address] [place] [address] Kyle Ibrahim MD Type 2 diabetes mellitus with other specified complication, unspecified whether fpc insulin use ([facility]) 06/13/2024 Refill [facility] MED[facility] [address] [place] [address] Kyle Ibrahim MD Atrial fibrillation, unspecified type ([facility]) 06/10/2024 Telephone [facility] MED[facility]INE [address] [place] [address] Claudy Robbins MA daryl recalls 06/08/2024 Refill [facility] CL[facility] [address] [place] [address] Kyle Ibrahim MD from Last 3 Months Immunizations Name Administration Dates Next Due Influenza High-dose Quadriva lent Preservative Free 08/06/2020 Influenza injectable quadriv alent IIV4 with preservative 08/24/2017,08/06/2016 Influenza injectable quadriv alent preservative free 07/06/2023,06/27/2022,08/06/2015 Influenza, High Dose Seasona l, Preservative Free 05/06/2024,09/13/2019,05/31/2018 Influenza, IIV3, injectable 07/15/2010 Influenza, Split (incl. marylou fied surface antigen) 06/09/2013,09/15/2012 Influenza, seasonal, injecta ble, preservative free 05/12/2016 Pneumococcal Conjugate PCV 13 09/13/2019 Pneumococcal Polysaccharide PPSV23 05/12/2016, TD (adult), 2 Lf tetanus tox oid, preservative free, adsorbed 10/19/2006 Tdap 05/06/2024,09/15/2012 Zoster, Recombinant 03/07/2021,01/04/2021 Zoster, live 08/24/2017 Social History Tobacco Use Types Packs/Day Years Used Date Smoking Tobacco: Every Day Cigarettes Smokeless Tobacco: Never Tobacco Cessation:Ready to Q uit: Not Asked; Counseling Given: Not Answered Alcohol Use Standard Drinks/Week Comments Yes 0 (1 standard drink = 0.6 oz pur e alcohol) socially Depression Answer Date Recorded Patient Health Questionnaire-9 Score 0 04/10/2023 Housing Stability Answer Date Recorded What is your housing situation today? I have darling beth 06/15/[address] you li [...] Orientation Straight 06/16/2022 10 :17 AM EDT Last Filed Vital Signs Vital Sign Reading Time Taken Comments Blood Pressure 117/65 05/06/2024 10:44 AM EDT Pulse 57 05/06/2024 10:44 AM EDT Temperature 36.1 ??C (97 ??F) 05/06/2024 10:44 AM EDT Respiratory Rate 10 05/06/2024 10:44 AM EDT Oxygen Saturation 98% 05/06/2024 10:44 AM EDT Inhaled Oxygen Concentration - - Weight 97.5 kg (215 lb) 05/06/2024 10:44 AM EDT Height 162.6 cm (5' 4 ) 05/06/2024 10:44 AM EDT Body Mass Index 36.9 05/06/2024 10:44 AM EDT Plan of Treatment Health Maintenance Due Date Last Done Comments Alcohol/Substance Use Screening 1957 RSV Patients and Patients Aged 60 years or older (1 - 1-dose 75+ series) 2021 Depression Screening 04/10/2024 04/10/2023, 04/10/20 COVID-19 Vaccine ( season) 2024 06/27/2022, 02/24/2022, 07/24/2021, Additional history exists SDOH Screening 07/02/2024 07/02/2023 Diabetes: Hemoglobin A1C 08/05/2024 024, 04/10/2023, 02/25/2022, Additional history exists Diabetes: Foot Exam 05/06/2025 05/06/2024, 05/06/2024, 05/06/2024, Additional history exists Diabetes: Urine Protein Screening 05/09/2025 05/09/2024, 02/25/2022, 12/28/2020, Additional history exists Lipid Panel 05/09/2025 05/09/2024, 02/25/2022 Tobacco Screening 08/22/2025 08/22/2024 Eye Exam 08/22/2026 08/22/2024, 01/2025, 08/22/2024, Additional history exists DTaP/Tdap/Td Vaccines (3 - Td or Tdap) 05/06/2034 05/06/2024, 09/15/2012, 10/19/2006 Pneumococcal Vaccine: 65+ Years Completed 09/13/2019, 05/12/2016, 08/05/2005 Zoster Vaccines Completed 03/07/2021, 12/16, 08/24/2017 Influenza Vaccine Completed 05/06/2024, , 06/27/2022, Additional history exists Hepatitis C Screening Completed 05/09/2024 HIB Vaccines Aged Out No longer eligi ble based on patient's age to complete this topic HPV Vaccines Aged Out No longer eligi ble based on patient's age to complete this topic Hepatitis A Vaccines Aged Out No long er eligible based on patient's age to complete this topic Hepatitis B Vaccines Aged Out No long er eligible based on patient's age to complete this topic IPV Vaccines Aged Out No longer eligi ble based on patient's age to complete this topic Meningococcal Vaccine Aged Out No maisha olivia eligible based on patient's age to complete this topic RSV under 20 months Aged Out No longe r eligible based on patient's age to complete this topic Rotavirus Vaccines Aged Out No longer eligible based on patient's age to complete this topic Procedures Procedure Name Priority Date/Time Associated Diagnosis Comments ALBUMIN, RANDOM URINE W/CREATININE Routine 05/09/2024 9:30 AM EDT Type 2 diabetes mellitus with other specified complication, unspecified whether fpc insulin use (CMS/HCC) Venous insufficiency (chronic) (peripheral) Chronic atrial fibrillation (CMS/HCC) Essential hypertension HEPATITIS C AB W/REFL TO HCV RNA, QN, PCR Routine 05/09/2024 9:27 AM EDT Need for hepatitis C screening test LIPID PANEL, STANDARD Routine 05/09/2024 9:27 AM EDT Type 2 diabetes mellitus with other specified complication, unspecified whether roasterman insulin use (CMS/HCC) Venous insufficiency (chronic) (peripheral) Chronic atrial fibrillation (CMS/HCC) Essential hypertension POCT GLYCATED HEMOGLOBIN, TOTAL Routine 05/06/2024 10:57 AM EDT Type 2 diabetes mellitus with other specified complication, unspecified whether roasterman insulin use (CMS/HCC) from Last 3 Months or Most Recently Relevant to Health Maintenance Results * (ABNORMAL) Albumin, Random Urine W/Creatinine (05/09/2024 9:30 AM EDT) Creatinine, Urine 265.72 mg/dL [facility] Microalbumin Urine 245.0 mg/L H [facility] Microalbum Creatinine Ratio Ur 92.2(H) <30 ug/mg cr [facility] Comment:Albumin/Creatinine R at Reference Ranges: Normal: < 30 ug/mg creatinine Microalbuminuria: 30 - 300 ug/mg creatinineClinical Albuminuria: > 300 ug/mg creatinine Urine (Urine, Random) 05/09/2024 9:30 AM EDT 05/09/2024 11:32 AM EDT us Kyle Ibrahim MD LAB URINE ORDERABLES Final Resul t Performing Organization Address [facility] Co de Phone Number [facility] [address] [place] [phone] * Hepatitis C Antibody with Reflex to HCV, RNA, Quantitative, Real-Time PCR (05/09/2024 9:27 AM EDT) Hepatitis C Antibody Nonreactive Nonreactive [facility] Comment:Antibodies to HCV no t detected; does not exclude early acuteHCV infection. Blood Venous blood specimen / Unknown 05/09/2024 9:27 AM EDT 05/09/2024 11:19 AM EDT us Kyle Ibrahim MD LAB BLOOD ORDERABLES Final Resul t Performing Organization Address [facility] Co de Phone Number [facility] [address] [place] [phone] * (ABNORMAL) Lipid Panel, Standard (05/09/2024 9:27 AM EDT) Triglycerides 158(H) <150 mg/dL [facility] Comment:Desirable Triglyceri de: less than 150 mg/dLBorderline High Triglyceride 150-199 mg/dLHigh Triglyceride: 200-499 mg/dLVery High Triglyceride: greater than or equal to 5OO mg/dL Cholesterol 117 <200 mg/dL [facility] Comment:Desirable Cholestero l: less than 200 mg/dLBorderline High Cholesterol: 200-239 mg/dLHigh Cholesterol: greater than 239 mg/dL LDL Cholesterol Calculated 54 <100 mg/dL [facility] Comment:Desirable LDL: less than 100 mg/dLNear Optimal/Above Optimal LDL: 110- 129 mg/dLBorderline High LDL: 130-159 mg/dLHigh LDL: 160-189 mg/dLVery High LDL: greater than or equal to 190 mg/dL HDL Cholesterol 32(L) >40 mg/dL [facility] Comment:Desirable HDL: great er than 40 mg/dL Note: This HDL assay may give artificially low results in patients with liver disease. Blood Venous blood specimen / Unknown 05/09/2024 9:27 AM EDT 05/09/2024 11:19 AM EDT us Kyle Ibrahim MD LAB BLOOD ORDERABLES Final Resul t [facility] [address] [place] [phone] * (ABNORMAL) POCT HGB A1C (05/06/2024 10:57 AM EDT) Hemoglobin A1C 8.2(A) 4.0 - 6.0 % QC Media Lot # [id number] Lot# Expiration Date [id number] Blood 05/06/2024 10:5 7 AM EDT us Kyle Ibrahim MD POINT OF CARE TEST ENTER/EDIT OR DERABLES Final Result from Last 3 Months or Most Recently Relevant to Health Maintenance Insurance MEDICARE Care Teams Jaw Skinner Relationship Specialty Start Date End Date Name, MD Kyle [address] [place] [address] [place] [address] PCP - General Family Medicine 03/14/19
--- OUTSIDE RECORDS SUMMARY | 2024-09-07 11:23 | XMS_ITS | Encounter Summary ---
Author Organization [employer] Address [address] [place] [address] Care Team Providers Care Can Washer Name Role Phone Name, Kyle GUNDERSON Primary Care Provider Encounter Details Date Type Department Care Team (Late st Contact Info) Description 12/16/2022 Orders Only [facility] [address] [place] [address] Flaquita Yo LPN Social History Tobacco Use Types Packs/Day Years Used Date Smoking Tobacco: Never Assessed Sex and Gender Information Value Date Recorded Sex Assigned at Male 06/16/2022 10:17 AM EDT Legal Sex Male 10:17 AM EDT Gender Identity Male 06/16/2022 10:17 AM EDT Sexual Orientation Straight 06/16/2022 10 :17 AM EDT documented as of this encounter Plan of Treatment Not on file documented as of this encounter Visit Diagnoses Not on filedocumented in this encounter Care Teams Can Washer Relationship Specialty Start Date End Date Name, MD Kyle [address] [place] [phone] PCP - General Family Medicine 03/14/19 Glenis Loera Back Order Clerk 07/14/23 10/14/23 documented as of this encounter
--- OUTSIDE RECORDS SUMMARY | 2024-09-07 11:23 | XMS_ITS | Encounter Summary ---
Author Organization [employer] Address [address] [facility] [address] [place] [address] Care Team Providers Care Inspecting Supervisor Name Role Phone Name, Kyle GUNDERSON Primary Care Provider [phone] Reason for Visit * Reason Onset Date Comments No Show 09/06/2024 Encounter Details Date Type Department Care Team (Late st Contact Info) Description 09/06/2024 Telephone [facility] [address] [place], [place] [phone] Name, MD Kyle [address] [place], [place] [phone] No Show Social History Tobacco Use Types Packs/Day Years [...] AM EDT documented as of this encounter Miscellaneous Notes * Telephone Encounter - Clemencia Conti - 09/06/2024 2:15 PM EST Patient no show to follow up appointment on 09/06/24. documented in this encounter Plan of Treatment Not on file documented as of this encounter Visit Diagnoses Not on filedocumented in this encounter Additional Health Concerns Assessment Noted Time PHQ-9 Depression Total Score: 0 04/10/20 23 10:19 AM EDT documented as of this encounter Care Teams Inspecting Supervisor Relationship Specialty Start Date End Date Name, MD Kyle [address] [place] [address] PCP - General Family Medicine 03/14/19 documented as of this encounter
--- OUTSIDE RECORDS SUMMARY | 2024-09-07 11:23 | XMS_ITS | Encounter Summary ---
Author Organization [employer] Address [address] [facility] [address] [place] [address] Care Team Providers Care Vp Site Name Role Phone Name, Kyle GUNDERSON Primary Care Provider [phone] Encounter Details Date Type Department Care Team (Late st Contact Info) Description 11/24/2022 Orders Only [facility] MEDICINE [address] [place] [address] Yue Doran LPN Social History Tobacco Use Types Packs/Day [...] on filedocumented in this encounter Care Teams Vp Site Relationship Specialty Start Date End Date Name, MD Kyle [address] [place] [address] PCP - General Family Medicine 03/14/19 Glenis Loera Sales Rep 07/14/23 10/14/23 documented as of this encounter
--- OUTSIDE RECORDS SUMMARY | 2024-09-07 11:23 | XMS_ITS | Encounter Summary ---
Author Organization [employer] Address [address] [place] [facility] [place] [place] [address] Care Team Providers Care Brazing Machine Operator Automatic Name Role Phone Name, Kyle GUNDERSON Primary Care Provider [phone] Encounter Details Date Type Department Care Team (Late st Contact Info) Description 03/24/2023 Orders Only [facility] [address] [place], [place] [phone] David Amaral MD [address] [place], [place] [phone] Social History Tobacco Use Types Packs/Day Years Used Date Smoking Tobacco: Every Day Cigarettes Smokeless Tobacco: Never Sex and Gender Information Value Date Recorded Sex Assigned at Male 06/16/2022 10:17 AM EDT Legal Sex Male 10:17 AM EDT Gender Identity Male 06/16/2022 10:17 AM EDT Sexual Orientation Straight 06/16/2022 10 :17 AM EDT documented as of this encounter Plan of Treatment Not on file documented as of this encounter Visit Diagnoses Not on filedocumented in this encounter Care Teams Brazing Machine Operator Automatic Relationship Specialty Start Date End Date Name, MD Kyle [address] [place] [phone] PCP - General Family Medicine 03/14/19 Glenis Loera Radioisotope Technologist 07/14/23 10/14/23 documented as of this encounter
--- OUTSIDE RECORDS SUMMARY | 2024-09-07 11:23 | XMS_ITS | Encounter Summary ---
Author Organization [employer] Address [address] [place] [address] Care Team Providers Care Electrical Instrument Repairer Name Role Phone Name, Kyle GUNDERSON Primary Care Provider Encounter Details Date Type Department Care Team (Late st Contact Info) Description 10/20/2022 Orders Only [facility]S [address] [place] [address] Flaquita Yo LPN Social History Tobacco Use [...] on filedocumented in this encounter Care Teams Electrical Instrument Repairer Relationship Specialty Start Date End Date Name, MD Kyle [address] [place] [phone] PCP - General Family Medicine 03/14/19 Glenis Loera Shooter Helper 07/14/23 10/14/23 documented as of this encounter
--- OUTSIDE RECORDS SUMMARY | 2024-09-07 11:23 | XMS_ITS | Encounter Summary ---
Author Organization [employer] Address [address] [facility] 7[address] [place] [address] Care Team Providers Care Base Loader Name Role Phone Name, Kyle GUNDERSON Primary Care Provider [phone] Encounter Details Date Type Department Care Team (Latest Contact Info) Description 08/22/2024 9:45 AM EST Office Visit 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 male. HPI T2DM exam. Last A1c 8.2% on 05/08/24. 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 DAVE: 5 years ago Last edited by Iwona Dotson, OD on 08/22/2024 10:12 AM. Current Outpatient Medications Medication Sig Dispense Refill albuterol 108 (90 Base) MCG/ACT inhaler Inhale 2 puffs every 4 (four) hours. amLODIPine (Norvasc) 5 MG tablet TAKE 1 TABLET BY MOUTH EVERY MORNING 90 tablet 1 atorvastatin (Lipitor) 40 MG tablet TAKE 1 TABLET BY MOUTH AT BEDTIME 90 tablet 1 digoxin (Lanoxin) 125 MCG tablet TAKE 1 TABLET BY MOUTH EVERY MORNING 90 tablet 1 Easy Touch Lancets 33G/Twist misc TEST BLOOD SUGAR FOUR TIMES DAILY 100 each 11 Eliquis 5 MG tablet TAKE 1 TABLET BY MOUTH TWICE DAILY IN THE MORNING AND IN THE EVENING 60 tablet 1 Flovent HFA 110 MCG/ACT inhaler INHALE 1 PUFF BY MOUTH TWICE DAILY WITH SPACER RINSE MOUTH AFTER USING. 12 g 5 folic acid (Folvite) 1 MG tablet TAKE 1 TABLET BY MOUTH EVERY MORNING 90 tablet 1 furosemide (Lasix) 20 MG tablet To take once a day in addition to 20mg of prednisone he has on the medbox for 10 days 10 tablet 0 furosemide (Lasix) 20 MG tablet TAKE 1 TABLET BY MOUTH EVERY MORNING 90 tablet 1 glipiZIDE (Glucotrol) 5 MG tablet TAKE 1 TABLET BY MOUTH TWICE DAILY IN THE MORNING AND IN THE EVENING WITH FOOD 180 tablet 1 glucose blood (FREESTYLE LITE) test strip TEST BLOOD SUGAR FOUR TIMES DAILY 100 strip 11 hydrocortisone 1 % cream APPLY TOPICALLY TO AFFECTED AREA(S) TWICE DAILY 28 g 0 lisinopril 20 MG tablet TAKE 1 TABLET BY MOUTH EVERY MORNING 90 tablet 1 Magnesium 400 MG capsule Take 400 mg by mouth Once per day. 30 capsule 11 melatonin 5 MG tablet TAKE 1 TABLET BY MOUTH AT BEDTIME FOR SLEEP 90 tablet 1 metFORMIN (Glucophage) 1000 MG tablet TAKE 1 TABLET BY MOUTH TWICE DAILY IN THE MORNING AND IN THE EVENING WITH FOOD 180 tablet 1 metoprolol succinate XL (Toprol-XL) 100 MG 24 hr tablet TAKE 1 TABLET BY MOUTH EVERY MORNING 90 tablet 1 Multiple Vitamin (Multivitamin) tablet TAKE 1 TABLET BY MOUTH EVERY MORNING WITH FOOD 90 tablet 1 Spacer/Aero-Holding Chambers (OptiChamber [place]) misc 1 each every 4 (four) hours if needed (asthma). 1 each 0 thiamine (Vitamin B-1) 100 MG tablet TAKE 1 TABLET BY MOUTH EVERY MORNING 90 tablet 1 Umeclidinium [place] (Incruse Ellipta) 62.5 MCG/ACT aerosol powder INHALE 1 PUFF BY MOUTH EVERY DAYAT THE SAME TIME 30 each 2 No current facility-administered medications for this visit. History reviewed. No pertinent past medical history. History reviewed. No pertinent surgical history. No family history on file. Tobacco Use: High Risk (08/22/2024) Tobacco Smoking Tobacco Use: Every Day Smokeless Tobacco Use: Never Passive Exposure: Not on file No Known Allergies ROS Positive for: Endocrine, Eyes Negative for: Constitutional, Gastrointestinal, Neurological, Skin, Genitourinary, Musculoskeletal,HENT, Cardiovascular, Respiratory, Psychiatric, Allergic/Imm, Heme/Lymph Last edited by Iwona Dotson, ANTONIA on 08/22/2024 9:51 AM. Base Eye Exam Visual Acuity (Snellen - Linear) Right Left Both Dist cc 20/50 20/30 Dist ph cc 20/40 20/25 Near cc 20/30 Correction: Glasses Tonometry (iCare , 9:59 AM) Right Left Pressure 9 9 Pupils Pupils Right PERRL Left PERRL Visual Castro (Counting fingers) Left Right Full Full Extraocular Movement Right Left Full Full Neuro/Psych Oriented x3: Yes Dilation Both eyes: 1.0% tropicamide @ 10:08 AM Slit Lamp and Fundus Exam External Exam Right Left External Normal Normal Slit Lamp Exam Right Left Lids/Lashes MGD w/ lid margin telangectasias MGD w/ lid margin telangectasias Conjunctiva/Sclera White and quiet White and quiet Cornea Thinning @ 7:00 periphery Clear Anterior Chamber Deep and quiet, angles open gr 3 Deep and quiet, angles open gr 3 Iris Round and reactive, (-) NVI Round and reactive, (-) NVI Lens 2+ NS, 1+ cortical changes 2+ NS, 1+ cortical changes Fundus Exam Right Left Vitreous Clear Clear Disc [place] and healthy, oval shape (-) NVD [place] and healthy, (-) NVD C/D Ratio Vertical 0.45 0.50 C/D Ratio Horizontal 0.45 0.50 Macula Flat with even pigmentation, (-) CME Flat with even pigmentation, (-) CME Vessels Normal course and caliber, (-) NVE Normal course and caliber, (-) NVE Periphery No holes/tears/detachments 360 No holes/tears/detachments 360 Refraction Wearing Rx Sphere Cylinder Right +3.25 Sphere Left +3.25 Sphere Manifest Refraction (Subjective) Sphere Cylinder Dist VA Add Right +3.25 Sphere 20/40+2 +2.50 Left +4.00 Sphere 20/25+2 +2.50 Final Rx Sphere Cylinder Add Right +3.25 Sphere +2.50 Left +4.00 Sphere +2.50 Expiration Date: 08/22/2025 Assessment and Plan Diagnoses and all orders for this visit: Type 2 diabetes mellitus without ophthalmic manifestations (CMS/HCC) - No diabetic retinopathy or diabetic macular edema both eyes (OU) - Discussed importance of tight blood glucose control, medication compliance and regular follow up with PCP Combined forms of age-related cataract of both eyes - Mild impact on vision (BCVA OD: 20/40+2, OS: 20/25+2) - Discussed option of cataract surgery vs. monitoring. Patient opts to monitor at this time. 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
--- OUTSIDE RECORDS SUMMARY | 2024-09-07 11:23 | XMS_ITS | Encounter Summary ---
Author Organization [employer] Address [address] [facility] [address] [place] [address] Care Team Providers Care Data Architect Manager Name Role Phone Name, Kyle GUNDERSON Primary Care Provider [phone] Encounter Details Date Type Department Care Team (Latest Contact Info) Description 08/22/2024 Travel Social History Tobacco Use Types Packs/Day Years Used Date Smoking Tobacco: Every Day Cigarettes Smokeless Tobacco: Never Alcohol Use Standard Drinks/Week Comments Yes 0 (1 standard drink = 0.6 oz pur e alcohol) socially Depression Answer Date Recorded Patient Health Questionnaire-9 Score 0 04/10/2023 Housing Stability Answer Date Recorded What is your housing situation today? I have darlingjuan campos 06/15/[address] you [...] documented as of this encounter Care Teams Data Architect Manager Relationship Specialty Start Date End Date Name, MD Kyle [address] [place] [address] PCP - General Family Medicine 03/14/19 documented as of this encounter
--- OUTSIDE RECORDS SUMMARY | 2024-09-07 11:23 | XMS_ITS | Encounter Summary ---
Author Organization [employer] Address [address] [facility] [address] [place] [address] Care Team Providers Care Research Interviewer Name Role Phone Name, Kyle GUNDERSON Primary Care Provider [phone] Reason for Visit * Reason Comments Med Refill Encounter Details Date Type Department Care Team (Late st Contact Info) Description 08/24/2024 Refill [facility] [address] [place], [place] [phone] Name, MD Kyle [address] [place], [place] [phone] Atrial fibrillation, unspecified type (CMS/HCC) Social History Tobacco Use Types Packs/Day Years [...] as of this encounter Visit Diagnoses Diagnosis Atrial fibrillation, unspecified type (CMS/HCC) documented in this encounter Additional Health Concerns Assessment Noted Time PHQ-9 Depression Total Score: 0 04/10/20 23 10:19 AM EDT documented as of this encounter Care Teams Research Interviewer Relationship Specialty Start Date End Date Name, MD Kyle [address] [place] [address] PCP - General Family Medicine 03/14/19 documented as of this encounter
--- OUTSIDE RECORDS SUMMARY | 2024-09-07 11:23 | XMS_ITS | Encounter Summary ---
Author Organization [employer] Address [address] [facility] [address] [place] [address] Care Team Providers Care Lacquer Machine Feeder Name Role Phone Name, Kyle GUNDERSON Primary Care Provider [phone] Reason for Visit * Reason Onset Date Comments chart prep 08/29/2024 Encounter Details Date Type Department Care Team (Late st Contact Info) Description 08/29/2024 Telephone [facility] [address] [place], [place] [phone] Claudy Robbins MA chart prep Social History Tobacco Use Types Packs/Day Years [...] encounter Miscellaneous Notes * Telephone Encounter - Claudy Robbins MA - 08/29/2024 1:52 PM EST Chart Prep Labs: done Images: done Vaccines due: yes Referrals: complete Screenings: none Overdue care gaps: A1C, Glucose, Sbirt, SDOH, PHQ-9, ANIL-7 documented in this encounter Plan of Treatment Not on file documented as of this encounter Visit Diagnoses Not on filedocumented in this encounter Additional Health Concerns Assessment Noted Time PHQ-9 Depression Total Score: 0 04/10/20 23 10:19 AM EDT documented as of this encounter Care Teams Lacquer Machine Feeder Relationship Specialty Start Date End Date Name, MD Kyle [address] [place] [address] PCP - General Family Medicine 03/14/19 documented as of this encounter
--- OUTSIDE RECORDS SUMMARY | 2024-09-07 11:23 | XMS_ITS | Encounter Summary ---
Author Organization [employer] Address [address] [facility] [address] [place] [address] Care Team Providers Care Sleeping Car Service Attendant Name Role Phone Name, Kyle GUNDERSON Primary Care Provider [phone] Reason for Visit * Reason Comments Med Refill Encounter Details Date Type Department Care Team (Late st Contact Info) Description 06/15/2023 Refill [facility] [address] [place], [place] [phone] Name, MD Kyle [address] [place], [place] [phone] Social History Tobacco Use Types Packs/Day Years [...] the past 12 months, has t he [employer], oil or water company threatened to shut [...] documented as of this encounter Care Teams Sleeping Car Service Attendant Relationship Specialty Start Date End Date Name, MD Kyle [address] [place] [address] PCP - General Family Medicine 03/14/19 Glenis Loera Mud Mill Tender 07/14/23 10/14/23 documented as of this encounter
--- OUTSIDE RECORDS SUMMARY | 2024-09-07 11:23 | XMS_ITS | Encounter Summary ---
Author Organization [employer] Address [address] [facility] [address] [place] [address] Care Team Providers Care Gear And Spline Grinder Name Role Phone Name, Kyle GUNDERSON Primary Care Provider [phone] Encounter Details Date Type Department Care Team (Late st Contact Info) Description 01/15/2023 Orders Only [facility] [address] [place] [address] Flaquita Yo LPN Social History Tobacco Use [...] on filedocumented in this encounter Care Teams Gear And Spline Grinder Relationship Specialty Start Date End Date Name, MD Kyle [address] [place] [id number] PCP - General Family Medicine 03/14/19 Glenis Loera Supervisor Evaporator 07/14/23 10/14/23 documented as of this encounter
== END 2024-09-07 10:44 | disposition home or self-care (01) ==
PROVIDERS: PCP Internal Medicine Geriatric Medicine; Visit Provider Internal Medicine
DX: E66.9 Obesity, unspecified (principal); J44.9 Chronic obstructive pulmonary disease, unspecified; J96.91 Respiratory failure, unspecified with hypoxia
CPT/HCPCS: 99213

== ENCOUNTER → 2024-09-07 10:20 | Outpatient (BNVA) | payer MEDICARE, SELFPAY | PROVIDERS: PCP Internal Medicine Geriatric Medicine; Visit Provider Internal Medicine | DX: J44.9 Chronic obstructive pulmonary disease, unspecified (principal); J96.91 Respiratory failure, unspecified with hypoxia; E66.01 Morbid (severe) obesity due to excess calories; G47.33 Obstructive sleep apnea (adult) (pediatric); Z68.41 Body mass index [BMI] 40.0-44.9, adult | CPT/HCPCS: 99212 ==